=== PATIENT | female | born 1985 | race Caucasian/White ===

== ENCOUNTER → 2016-12-14 | Outpatient (CLI) | payer OTHER ==
[2016-11-16 15:25] VITALS: BP 124/62
[~2016-12-14] MED LIST: AMLO10TA2 PO; AZAT50TA10 PO; CYCL1DRO OP; FOLI1TAB16 PO; INFL100V IV; LAMO150T PO; LAMO200T PO; LEVO750T5 PO; LORA-434 PO; METF500T4 PO; MULT-18 PO; OLOP5DRO OP; OMEP40CA5 PO; OXYC-323 PO; PRED5DRO6 OP; PROG200C2 PO; TIZA4CAP PO; TRAZ100T12 PO; VENTOLIN HFA18 GM IH
--- NOTE | 2016-12-14 12:28 | KCIC ---
PROCEDURE Two-view chest HISTORY Influenza type A, cough, congestion for 5 days COMPARISON August 18, 2015 FINDINGS Two views of the chest are submitted. There is again right internal jugular port catheter with the tip in the superior vena cava. There is again electronic device of the anterior left chest with leads terminating in the inferior left neck. Heart size is stable, within normal limits. There is no new infiltrate, pleural fluid, pneumothorax. IMPRESSION No acute radiographic abnormality is identified. Electronically signed by: Cesar Livingston MD (Dec 14, 2016 12:26:45)
== END | disposition home or self-care (01) ==
LOC: KCIC 12:07
PROVIDERS: ATTEND Physician Assistant Medical
DX: J10.1 Influenza due to other identified influenza virus with other respiratory manifestations (principal); R05 Cough; R09.81 Nasal congestion
CPT/HCPCS: 71020

== ENCOUNTER 2017-03-18 00:20 | Emergency (ER) | payer OTHER ==
[~2017-03-18] VITALS: Ht 188 cm; Wt 220.4 kg
[2017-03-18 00:30] VITALS: BP 187/127
[2017-03-18] MEDS ORDERED: HYDROCODONE/APAP 5/325MG TABLET. PO ONE (00:45)
--- NOTE | 2017-03-18 01:25 | PHYS DOC ---
Past Medical History Past Medical History: Asthma, Ovarian Cyst, Other Additional Past Medical Histor: EPILEPSY,VAGAL NERVE STIMULATOR IN THE UPPER LEFT CHEST,BECHETS,OBESITY Past Surgical History: Appendectomy, Cholecystectomy, Tonsillectomy Additional Past Surgical Histo: PORTACATH RIGHT CHEST,RIGHT KNEE Alcohol Use: Rarely Drug Use: None Adult General Chief Complaint Chief Complaint: ANKLE PROBLEM HPI HPI Patient is a 31 year old female who presents with right ankle injury. 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 She felt a pop at time of injury. Was able to bear weight with significant amount of pain after the injury, had to walk up a hill to get back to the building. She denies previous ankle fracture or surgery. No additional injuries today. Review of Systems Review of Systems Constitutional: Denies fever or chills HENT: Denies nasal congestion Respiratory: Denies cough or shortness of breath Musculoskeletal: Reports ankle pain Integument: Denies rash Neurologic: Denies headache Current Medications Current Medications Current Medications Medications (Trade) Dose Ordered Sig/Munira Start Time Stop Time Status Last Admin Dose Admin Acetaminophen/ Hydrocodone Bitart (Lortab 5/325) 2 tab 1X ONCE 03/18/17 00:45 03/18/17 00:46 DC 03/18/17 00:50 2 TAB Allergies Allergies Allergies Coded Allergies Type Severity Reaction Last Updated Verified Penicillins Allergy Intermediate Swellingand hives 02/09/17 Yes amoxicillin Allergy Intermediate Swelling and hives 02/09/17 Yes aspirin Allergy Intermediate Hives, OK with premed 02/09/17 Yes hydrocodone bitartrate Allergy Intermediate Itching, OK with premed 02/09/17 Yes iodine Allergy Intermediate Hives iv contrast dye 02/09/17 Yes Physical Exam Physical Exam Constitutional: morbidly obese, no acute distress, non-toxic appearance. HENT: Normocephalic, atraumatic Eyes: conjunctiva normal, no discharge. Cardiovascular: no edema. Lungs & Thorax: no respiratory distress. Abdomen: nondistended. Skin: Warm, dry, no erythema, no rash. Extremities: right ankle moderate swelling without deformity, tenderness only over the lateral malleolus, no medial malleolar tenderness or tenderness over 5th metatarsal. minimal active range of motion at the ankle due to pain. no proximal tib/fib tenderness, no joint laxity with anterior/posterior drawer. dp /pt 2+, sensation intact to foot. Neurologic: Alert and oriented X 3 Current Patient Data Vital Signs Vital Signs Date Time Temp Pulse Resp B/P Pulse Ox O2 Delivery O2 Flow Rate FiO2 03/18/17 00:30 99.2 102 24 96 Room Air 99.2 EKG EKG [] Radiology/Procedures Radiology/Procedures XR R ankle: interpreted by me: no fracture or dislocation, soft tissue swelling is present.[] Course & Med Decision Making Course & Med Decision Making Pertinent Labs and Imaging studies reviewed. (See chart for details) The patient presents with ankle injury. She received pain medication. X-ray shows no fracture. Air splint placed, provided with crutches and crutch training. Recommend rest, ice elevation, ibuprofen for pain. Follow-up with Dr. Benedict in the orthopedic clinic if not improving in about one week. Return to the emergency department for neurovascular compromise or otherwise worsening condition. Discharged home in stable condition. [] Dragon Disclaimer Dragon Disclaimer This electronic medical record was generated, in whole or in part, using a voice recognition dictation system. Departure Departure Impression: Primary Impression: Ankle sprain Disposition: HOME, SELF-CARE Condition: STABLE Referrals: MANUEL DUBON (PCP) JAMESON BENEDICT II, MD Patient Instructions: Ankle Sprain, [id number] Additional Instructions: You were in the emergency department today for ankle injury. X-ray did not show a fracture. Please rest, apply ice, elevate, wear splint for comfort, use crutches with weightbearing as tolerated. Take ibuprofen for pain, use [place] for severe breakthrough pain. No drinking alcohol or driving while taking [place]. Return to work as tolerated, likely light-duty would be most appropriate for the next several days. Follow-up with Dr. Benedict in the orthopedic clinic if not improving in about one week. Return to the emergency department for cold or numb foot, any otherwise worsening condition. Scripts Hydrocodone/Apap 5-325 ([place] 5-325 Tablet)1 Each Tablet1 Tab PO PRN Q6HRS PRN PAIN #6 TAB Ref 0 Prov:ROSALBA ALFRED MD 03/18/17 Ibuprofen 600 Mg [id number] Mg PO PRN Q6HRS PRN INFLAMMATION #20 TAB Prov:ROSALBA ALFRED MD 03/18/17 ROSALBA ALFRED MD Mar 18, 2017 01:25
[2017-03-18] MEDS ORDERED: HYDR-971 PO (01:28)
[2017-03-18] MEDS ORDERED: IBUP-1007 PO (01:28)
--- NOTE | 2017-03-18 09:16 | RAD ---
Three-view right ankle radiographs 03/18/2017 Clinical history: Twisting injury to the right ankle with pain. Portable AP, lateral and oblique digital radiographs of the right ankle were obtained. No fracture or dislocation of the right ankle is seen. The right ankle mortise is intact. Mild degenerative changes are seen involving the right ankle joint. Impression: No fracture or dislocation of the right ankle is seen.
== END 2017-03-18 01:45 | disposition home or self-care (01) ==
LOC: ER 00:20
DX: S93.401A Sprain of unspecified ligament of right ankle, initial encounter (principal); G40.909 Epilepsy, unspecified, not intractable, without status epilepticus; J45.909 Unspecified asthma, uncomplicated; Z88.0 Allergy status to penicillin; Z88.6 Allergy status to analgesic agent; Z88.1 Allergy status to other antibiotic agents; Z91.041 Radiographic dye allergy status; Z88.5 Allergy status to narcotic agent; W01.0XXA Fall on same level from slipping, tripping and stumbling without subsequent striking against object, initial encounter; Y93.89 Activity, other specified; Y99.8 Other external cause status; Y92.89 Other specified places as the place of occurrence of the external cause
CPT/HCPCS: 73610; 99284-25

== ENCOUNTER 2017-05-09 12:34 | Inpatient (IN) | payer OTHER ==
[~2017-05-09] VITALS: Ht 185.4 cm; Wt 213.6 kg
[~2017-05-09 12:34] MED LIST changes: -AZAT50TA10 PO; +AZAT50TA20 PO; +HYDR-971 PO; +IBUP-1007 PO; +PRED5DRO16 OP; -PRED5DRO6 OP
[2017-05-09 16:18] VITALS: BP 197/124
[2017-05-09] MEDS ORDERED: PANTOPRAZOLE IV PUSH 40 MG VIAL. IVP ONE (17:00)
[2017-05-09] MEDS: POTASSIUM CL 20MEQ D5-0.45NACL 1,000 ML IV SCH (17:18)
--- NOTE | 2017-05-09 17:47 | HP ---
ADMIT DATE: 05/09/2017 CHIEF COMPLAINT: Abdominal pain and vomiting. HISTORY OF PRESENT ILLNESS: A 32-year-old white female seen in the office on day of admission with 3 weeks of progressive increasing burning epigastric pain and an increasing nausea, vomiting, and intolerance of food and fluids. Urine showed high specific gravity and some ketones and she was admitted. There has been no hematemesis, melena, hematochezia, fever, or dysphagia or other symptoms. Abdominal pain initially was better with eating, but then she began to be unable to eat. She has been on omeprazole and Carafate recently without benefit. PAST MEDICAL HISTORY: History of Behcet's disease and takes Remicade every 6 weeks through an IV port. MEDICATIONS: Include omeprazole and Carafate. She takes 2 medicines for high blood pressure. ALLERGIES: PENICILLIN. PAST SURGICAL HISTORY: She has had an appendectomy and cholecystectomy. She apparently had an unremarkable EGD 6-8 months ago and has had colonoscopy as well. She has had no pregnancies. SOCIAL HISTORY: , works at [employer]. Nonsmoker, nondrinker. FAMILY HISTORY: Unremarkable. REVIEW OF SYSTEMS: She has recently been on home medication for the possibility of increased fertility per Dr. Ghotra, but her symptoms seemed to start before she started this drug. OBJECTIVE: ENT: Facies very red, otherwise unremarkable. NECK: No masses, nodes, or bruits. LUNGS: Clear. CARDIOVASCULAR: Regular rate, tachycardia. No murmur. ABDOMEN: Diffusely tender in the epigastrium. No masses or guarding is felt. Bowel sounds diminished. EXTREMITIES: Good pedal and radial pulses. No joint or skin lesions. NEUROLOGIC: Physiologic and nonfocal. ASSESSMENT: 1. Progressive diffuse epigastric burning pain, sounds more like ulcer disease to me than anything else. Behcet's could be contributing though has been treated. 2. Morbid obesity with a history of hypertension and polycystic ovary syndrome. PLAN: As ordered. DENI KAHN MD DR: SINGH/lucio JOB#: [id number] / [id number]
[2017-05-09 18:01] VITALS: BP 197/124
[2017-05-09] MEDS ORDERED: CLOM50TA2 PO (18:23)
[2017-05-09] MEDS: HYDROmorphone 2 MG/ML VIAL IVP PRN ×2 (18:36→22:03)
[2017-05-09] MEDS: amLODIPine BESYLATE 10 MG TABLET PO SCH (18:37)
[2017-05-09 18:47] LABS: BASO % 1 % (0-3); EOS % 3 % (0-3); HEMATOCRIT 38.4 % (36.0-47.0); HEMOGLOBIN 12.6 g/dL (12.0-15.5); LYMPH # 1.1 x10^3/uL (1.0-4.8); LYMPH % 12 % (24-48); MEAN CORPUSCULAR HEMOGLOBIN 27 pg (25-35); MEAN CORPUSCULAR HGB CONC 33 g/dL (31-37); MEAN CORPUSCULAR VOLUME 82 fL (79-100); MONO % 6 % (0-9); NEUT % 79 % (31-73); PLATELET COUNT 155 x10^3/uL (140-400); WHITE BLOOD COUNT 8.9 x10^3/uL (4.0-11.0)
[2017-05-09 18:54] LABS: BILIRUBIN,URINE NEGATIVE (NEG); GLUCOSE,URINE NEGATIVE (NEG); NITRITE,URINE NEGATIVE (NEG); PROTEIN,URINE 30 mg/dL (NEG-TRACE); UROBILINOGEN,URINE 0.2 mg/dL (0.2 mg/dL)
[2017-05-09 19:00] VITALS: BP 178/92
[2017-05-09 19:04] LABS: BACTERIA,URINE MODERATE /HPF (0-FEW); RBC,URINE 0 /HPF (0-2); SQUAMOUS EPITHELIAL CELL,UR MANY /LPF; WBC,URINE OCC /HPF (0-4)
[2017-05-09 19:15] LABS: ALBUMIN 3.7 g/dL (3.4-5.0); CREATININE 0.8 mg/dL (0.6-1.0); GFR 84.2; POTASSIUM 3.7 mmol/L (3.5-5.1); TOTAL BILIRUBIN 0.4 mg/dL (0.2-1.0); TOTAL PROTEIN 7.3 g/dL (6.4-8.2)
[2017-05-09] MEDS: PROCHLORPERAZINE 10 MG/2 ML VIAL. IV PRN (20:38)
--- NOTE | 2017-05-09 20:38 | RAD ---
History: Left upper quadrant pain for 3 weeks. Nausea and vomiting.. Comparison: CT abdomen and pelvis October 29, 2016. Technique: CT of the abdomen and pelvis was performed without intravenous or oral contrast. No intravenous contrast was administered secondary to allergy. Exposure: One or more of the following individualized dose reduction techniques were utilized for this examination: 1. Automated exposure control 2. Adjustment of the mA and/or kV according to patient size 3. Use of iterative reconstruction technique Findings: Evaluation of solid organs of the abdomen and pelvis is limited by lack of intravenous contrast. Evaluation of enteric structures may be limited by lack of oral contrast. There is also quantum mottle artifact secondary to the patient's body habitus. Mild fatty liver disease is suspected. The spleen is enlarged measuring 16.5 cm in axial dimension. Pancreas and bilateral adrenal glands are unremarkable. Gallbladder is absent. IVC filter is present. Bilateral kidneys and ureters are free of stone or obstruction. Small fat-containing umbilical hernia is seen. No bowel obstruction or inflammation is identified. Colonic diverticulosis is noted without evidence of diverticulitis. Appendix is without evidence of inflammation. The uterus and adnexa have grossly unremarkable appearance. Urinary bladder is unremarkable. No free air or free fluid is seen in the abdomen or pelvis. Several vertebral levels have been treated with cement. Impression: 1. No acute abnormality identified in the abdomen or pelvis. 2. Small fat-containing umbilical hernia. Electronically signed by: Enio Alvarez MD (05/09/2017 8:35 PM)
[2017-05-09] MEDS: cloNIDine HCL 0.1 MG TABLET PO PRN (22:02)
[2017-05-09 23:00] VITALS: BP 146/86
[2017-05-10] VITALS (9 sets, daily range): BP systolic 128–163; BP diastolic 60–113
[2017-05-10] MEDS: POTASSIUM CL 20MEQ D5-0.45NACL 1,000 ML IV SCH ×4 (00:05→16:30)
[2017-05-10] MEDS: PROCHLORPERAZINE 10 MG/2 ML VIAL. IV PRN ×5 (00:42→20:49)
[2017-05-10] MEDS: HYDROmorphone 2 MG/ML VIAL IVP PRN ×4 (05:51→20:48)
--- NOTE | 2017-05-10 08:34 | PDOC ---
Provider Note Provider Note bp better, no temp, still epigastric /LUQ pain, nausea- tender there w/out guarding- ct ok, labvs ok- will check lipase , cortisol, cont iv protonix- likely needs egd unless lipase high but no risk factors re pancreatitis DENI KAHN MD May 10, 2017 08:34
--- NOTE | 2017-05-10 08:51 | ACF ---
Admission Forms Criteria ABDOMINAL PAIN Clinical Indications for Admission to Inpatient Care (Place 'X' for any and all applicable criteria): Admission is indicated for ANY ONE of the following(1)(2)(3)(4)(5): [ ]I. Inpatient admission required rather than observation care (Also use Abdominal Pain: Observation Care, as appropriate) because of ANY ONE of the following: [ ]a) Severe pain requiring acute inpatient management [ ]b) Identification of etiology/finding that requires inpatient care (eg, aortic dissection, free air) [ ]c) Absent bowel sounds with complete ileus(6) [ ]d) Suspected toxic megacolon [ ]e) Severe electrolyte abnormalities requiring inpatient care [ ]f) High fever or infection requiring inpatient admission as indicated by ANY ONE of following(7)(8): [ ] i) Appropriate outpatient or observational care antimicrobial treatment unavailable, not effective, or not feasible [ ] ii) Documented bacteremia [ ] iii) Temperature > 104.9 degrees F (oral) [ ] iv) T >103.1 F (oral) or < 96.8 F(rectal) that does not respond to all emergency treatment measures [ ]g) Signs of intestinal obstruction [B] [ ]h) Hemodynamic instability [ ]i) IV fluid to replace significant ongoing losses (greater than 3 L/m2 per day) (12)(13) [ ]j) Percutaneous or open drainage (eg, abscess, biliary tract ) procedures [ ]k) Parenteral nutrition regimen that must be implemented on inpatient basis [ ]l) Other condition,treatment or monitoring requiring inpatient admission. [ ]II. Peritoneal signs present [ ]III. Surgery needed that cannot be performed on an ambulatory basis. [ ]IV. Evaluation requires patient to not eat or drink for extended period ( eg, more than 24 hours). [ ]V. Contraindications and/or Inappropriate clinical situations for Observational Care in patients with abdominal pain, when ANY ONE of the following is required: [ ]a) Thorough evaluation is required to prevent catastrophic events due to delays in diagnosing (e.g.Mesenteric ischemia) 1,3 [ ]b) Patient with severe pathology or with chronic symptoms unlikely to improve in the ED stay (3) [X]. General contraindications and/or Inappropriate clinical situations for Observational Care in patients with abdominal pain, when ANY ONE of the following is required: [ ]a) Prediction of prolongation of LOS based on ANY ONE of the following may be considered as a contraindication for observational care 2, 3, 4, 5, 6, 7, 8, 9, 10, 11 [ ]i) Age > 65 yrs. [ ]ii) Patient arriving by ambulance [ ]iii) Patient with high acuity [ ]iv) Patient requiring vital sign monitoring [ ]v) Patient on IV medication [X]b) Systolic blood pressures 180mmHg 3,12 [ ]c) Patient with altered mental status including delirium and other alteration of consciousness, (3) [ ]d) Patient whose discharge disposition will be to a usp home or rehabilitation home should not be managed in Emergency Department Observation Unit. CMS rule requires 3 days hospital stay before such placement.3,13 [ ]e) Patient with failure to thrive due to broad array of etiologies 3,16,17 [ ]f) Inability to ambulate 3,14 Extended stay beyond goal length of stay may be needed for(2)(3): [ ]a) Persistent abdominal pain with suspected intra-abdominal process [ ]b) Diagnosed condition requiring continued stay (e.g., pancreatitis, complicated diverticulitis) [ ]c) Surgery (e.g., colectomy) The original [employer] content created by [employer] has been revised. The portions of the content which have been revised are identified through the use of italic text or in bold, and [facility] has neither reviewed nor approved the modified material.All other unmodified content is copyright [employer]. Please see references footnoted in the original [employer] edition 2016 Admission Criteria Met?: Yes SAQIB HOSKINS May 10, 2017 08:51
[2017-05-10] MEDS: PANTOPRAZOLE SODIUM IV 80 MG in IV NORMAL SALINE 100ML 100 ML IV SCH ×2 (09:40→19:54)
--- NOTE | 2017-05-10 10:18 | PDOC2 ---
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 Carries diagnosis of Crohn's as well. Last colonoscopy 2012 w/ sigmoid diverticulosis, internal hemorrhoids, and normal random colon biopsies. Last EGD 03/2016 w/ Grade 1 reflux (path c/w), normal stomach, normal duodenum. Has had epigastric pain for a few weeks, tried carafate w/ PCP, didn't take much because caused more frequent stools. Pain getting worse, started w/ significant vomiting yesterday, unable to tolerated PO, admitted. Last BM two days ago, dark. No NSAIDs. Labs okay, CT unremarkable. Cortisol level ordered. She says she was hoping for 'scope. PMH: PMH: Behcet's, HTN, GERD, DVT/PE s/p IVC filter, anxiety/depression, PCOS, appendectomy, cholecystectomy FH: Family History: No pertinent hx Social History: Smoke: No ALCOHOL: none Drugs: None ROS: GEN: Denies fevers, chills, sweats HEENT: Denies blurred vision, sore throat CV: Denies chest pain RESP: Denies shortness of air, cough GI: Per HPI : Denies hematuria, dysuria ENDO: Denies weight changes NEURO: Denies confusion, dizziness MSK: Denies weakness, joint pain/swelling SKIN: Denies jaundice, pruritus Vitals: Vitals: Vital Signs Date Time Temp Pulse Resp B/P (MAP) Pulse Ox O2 Delivery O2 Flow Rate FiO2 05/10/17 07:00 97.7 103 20 162/92 (115) 97 Room Air 97.7 Labs: Labs: Laboratory Tests Test 05/09/17 18:40 White Blood Count 8.9 x10^3/uL (4.0-11.0) Red Blood Count 4.70 x10^6/uL (3.50-5.40) Hemoglobin 12.6 g/dL (12.0-15.5) Hematocrit 38.4 % (36.0-47.0) Mean Corpuscular Volume 82 fL (79-100) Mean Corpuscular Hemoglobin 27 pg (25-35) Mean Corpuscular Hemoglobin Concent 33 g/dL (31-37) Red Cell Distribution Width 16.0 % (11.5-14.5) Platelet Count 155 x10^3/uL (140-400) Neutrophils (%) (Auto) 79 % (31-73) Lymphocytes (%) (Auto) 12 % (24-48) Monocytes (%) (Auto) 6 % (0-9) Eosinophils (%) (Auto) 3 % (0-3) Basophils (%) (Auto) 1 % (0-3) Neutrophils # (Auto) 7.1 x10^3uL (1.8-7.7) Lymphocytes # (Auto) 1.1 x10^3/uL (1.0-4.8) Monocytes # (Auto) 0.5 x10^3/uL (0.0-1.1) Eosinophils # (Auto) 0.2 x10^3/uL (0.0-0.7) Basophils # (Auto) 0.0 x10^3/uL (0.0-0.2) Erythrocyte Sedimentation Rate 10 (0-25) Urine Collection Type Unknown Urine Color Yellow Urine Clarity Clear Urine pH 6.0 Urine Specific Al[place] 1.015 Urine Protein 30 mg/dL (NEG-TRACE) Urine Glucose (UA) Negative mg/dL (NEG) Urine Ketones (Stick) Trace mg/dL (NEG) Urine Blood Negative (NEG) Urine Nitrite Negative (NEG) Urine Bilirubin Negative (NEG) Urine Urobilinogen Dipstick 0.2 mg/dL (0.2 mg/dL) Urine Leukocyte Esterase Negative (NEG) Urine RBC 0 /HPF (0-2) Urine WBC Occ /HPF (0-4) Urine Squamous Epithelial Cells Many /LPF Urine Bacteria Moderate /HPF (0-FEW) Urine Hyaline Casts Few /HPF Urine Mucus Slight /LPF Sodium Level 141 mmol/L (136-145) Potassium Level 3.7 mmol/L (3.5-5.1) Chloride Level 106 mmol/L (98-107) Carbon Dioxide Level 26 mmol/L (21-32) Anion Gap 9 (6-14) Blood Urea Nitrogen 11 mg/dL (7-20) Creatinine 0.8 mg/dL (0.6-1.0) Estimated GFR (Cockcroft-Gault) 84.2 BUN/Creatinine Ratio 14 (6-20) Glucose Level 105 mg/dL (70-99) Calcium Level 9.0 mg/dL (8.5-10.1) Total Bilirubin 0.4 mg/dL (0.2-1.0) Aspartate Amino Transf (AST/SGOT) 21 U/L (15-37) Alanine Aminotransferase (ALT/SGPT) 37 U/L (14-59) Alkaline Phosphatase 58 U/L (46-116) Total Protein 7.3 g/dL (6.4-8.2) Albumin 3.7 g/dL (3.4-5.0) Albumin/Globulin Ratio 1.0 (1.0-1.7) Allergies: Coded Allergies: Penicillins (Verified Allergy, Intermediate, Swellingand hives, 05/04/17) amoxicillin (Verified Allergy, Intermediate, Swelling and hives, 05/04/17) aspirin (Verified Allergy, Intermediate, Hives, OK with premed, 05/04/17) iodine (Verified Allergy, Intermediate, Hives iv contrast dye, 05/04/17) Medications: Current Medications Medications (Trade) Dose Ordered Sig/Munira Route PRN Reason Start Time Stop Time Status Last Admin Dose Admin Potassium Chloride/Dextrose/ Sod Cl 1,000 ml @ 150 mls/hr Q6H40M IV 05/09/17 17:00 05/10/17 02:15 Pantoprazole Sodium (Protonix Vial) 40 mg 1X ONCE IVP 05/09/17 17:00 05/09/17 17:01 DC 05/09/17 17:17 Amlodipine Besylate (Norvasc) 10 mg DAILY PO 05/09/17 18:30 05/09/17 18:37 Hydromorphone HCl (Dilaudid) 0.6 mg PRN Q4HRS PRN IVP PAIN 05/09/17 18:15 05/10/17 05:51 Clonidine HCl (Catapres) 0.1 mg PRN Q6HRS PRN PO HTN 05/09/17 22:00 05/09/17 22:02 Prochlorperazine Edisylate (Compazine) 5 mg PRN Q4HRS PRN IV NAUSEA/VOMITING 05/09/17 20:15 05/10/17 05:51 Imaging: Imaging: CT A/P w/o contrast Impression: 1. No acute abnormality identified in the abdomen or pelvis. 2. Small fat-containing umbilical hernia. PE: GEN: NAD, obese HEENT: Atraumatic, PERRL LUNGS: CTAB anteriorly HEART: RRR ABD: NABS, S/ND, epigastric/LUQ discomfort EXTREMITY: No edema SKIN: No rashes, no jaundice NEURO/PSYCH: A & O 3 A/P: A/P: Upper abd pain, n/v -pain for a few weeks, worse -vomiting started yesterday -CT unremarkable -s/p appy, rosina -Cortisol ordered Behcet's -on Remicade GERD -on PPI, also tried carafate recently -last EGD 2015 CRC screen -last colonoscopy 2012 -- NPO for EGD this afternoon. If unrevealing, GES tomorrow. 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 BRYN WARD May 10, 2017 10:17
[2017-05-10 12:23] LABS: NEG OBC UR NEG; POS OBC UR POS
[2017-05-10] MEDS: IV RINGERS,LACTATED 1000ML 1,000 ML IV SCH ×2 (13:40→23:42)
[2017-05-10] MEDS ORDERED: PROPOFOL 20 ML IV ONE ×2 (14:16→14:17)
[2017-05-10] MEDS ORDERED: LIDOCAINE 2% PF Vial for OR 5 ML VIAL. ONE (14:16)
--- NOTE | 2017-05-10 14:33 | PDOC4 ---
Operative Note Operative Note EGD Meds propofol per anesthesia Pre-op dx abd pain s/p rosina post-op dx non-erosive gastritis Plan advance diet ges in am WILTON GRUBBS MD May 10, 2017 14:33
[2017-05-10] MEDS: amLODIPine BESYLATE 10 MG TABLET PO SCH (16:34)
[2017-05-10] MEDS ORDERED: cloNIDine HCL 0.1 MG TABLET PO SCH (18:30)
[2017-05-10] MEDS: cloNIDine HCL 0.1 MG TABLET PO PRN (20:52)
[2017-05-11] MEDS: POTASSIUM CL 20MEQ D5-0.45NACL 1,000 ML IV SCH ×3 (00:30→20:03)
[2017-05-11] MEDS: HYDROmorphone 2 MG/ML VIAL IVP PRN ×4 (01:01→20:35)
[2017-05-11] MEDS: PROCHLORPERAZINE 10 MG/2 ML VIAL. IV PRN ×3 (01:01→13:13)
[2017-05-11 03:00] VITALS: BP 128/77
[2017-05-11] MEDS: PANTOPRAZOLE SODIUM IV 80 MG in IV NORMAL SALINE 100ML 100 ML IV SCH (06:23)
[2017-05-11 07:00] VITALS: BP 108/59
--- NOTE | 2017-05-11 08:27 | PDOC ---
Provider Note Provider Note vss, fair output- gastritis per egd, get ordered- will try liquids after that- still iv protonix for now- lipase ok DENI KAHN MD May 11, 2017 08:27
[2017-05-11] MEDS: amLODIPine BESYLATE 10 MG TABLET PO SCH (09:57)
--- NOTE | 2017-05-11 13:18 | PDOC ---
Subjective: Subjective: Just back from GES. Not really feeling much better. Might try some lunch. Still upper abd discomfort. Objective: Vital Signs: Vital Signs Date Time Temp Pulse Resp B/P (MAP) Pulse Ox O2 Delivery O2 Flow Rate FiO2 05/11/17 09:57 68 108/59 05/11/17 07:11 18 Room Air 05/11/17 07:00 98.2 98 98.2 Imaging: GES 05/11/17 PENDING EGD 05/10/17: non-erosive gastritis PE: GEN: NAD, obese LUNGS: CTAB HEART: RRR ABD: epigastric discomfort - ?less than yesterday NEURO/PSYCH: A & O 3 A/P: Upper abd pain, n/v -CT unremarkable, s/p appy, rosian -h/o GERD on PPI, EGD yesterday as above -h/o Behcet's on Remicade, last colonoscopy 2012 -- Still on PPI drip - change to PO. Await GES. BRYN WARD May 11, 2017 13:18
[2017-05-11 15:00] VITALS: BP 132/78
--- NOTE | 2017-05-11 15:00 | RAD ---
Radionuclide gastric emptying study, 05/11/2017: History: Abdominal pain and vomiting The study was performed utilizing a solid test meal radiolabeled with 2.1 mCi of technetium 99m sulfur colloid. The time to half emptying of the test meal from the patient's stomach was estimated at 289 minutes. A normal T1/2 is 60 minutes +/- 30 minutes. IMPRESSION: Moderately delayed gastric emptying
[2017-05-11 19:59] VITALS: BP 169/96
[2017-05-11] MEDS: ERYTHROMYCIN BASE 250 MG TABLET PO SCH ×2 (20:03→20:04)
[2017-05-11 23:37] VITALS: BP 120/67
[2017-05-12] MEDS: HYDROmorphone 2 MG/ML VIAL IVP PRN ×6 (02:02→23:54)
[2017-05-12] MEDS: PROCHLORPERAZINE 10 MG/2 ML VIAL. IV PRN ×6 (02:02→23:54)
[2017-05-12] MEDS: POTASSIUM CL 20MEQ D5-0.45NACL 1,000 ML IV SCH ×3 (02:06→20:51)
[2017-05-12 03:41] VITALS: BP 130/87
[2017-05-12 07:00] VITALS: BP 143/80
[2017-05-12] MEDS: amLODIPine BESYLATE 10 MG TABLET PO SCH (08:17)
[2017-05-12] MEDS: ERYTHROMYCIN BASE 250 MG TABLET PO SCH ×4 (08:17→20:51)
[2017-05-12] MEDS: PANTOPRAZOLE 40 MG TABLET.DR. PO SCH (08:17)
[2017-05-12 11:14] VITALS: BP 158/81
--- NOTE | 2017-05-12 13:34 | PDOC ---
SUBJECTIVE Subjective still decrease appetite and nausea OBJECTIVE Vital Signs Vital Signs Date Time Temp Pulse Resp B/P (MAP) Pulse Ox O2 Delivery O2 Flow Rate FiO2 05/12/17 11:14 97.6 82 20 158/81 (106) 96 Room Air 97.6 05/12/17 11:04 100 Room Air 05/12/17 08:17 79 130/87 05/12/17 08:00 Room Air 05/12/17 07:00 97.9 75 16 143/80 (101) 100 Room Air 97.9 05/12/17 06:34 18 05/12/17 06:04 21 Room Air 05/12/17 03:41 98.4 79 18 130/87 (101) 96 Room Air 98.4 05/12/17 02:02 23 Room Air 05/11/17 23:37 98.1 61 18 120/67 (84) 96 Room Air 98.1 05/11/17 20:35 20 Room Air 05/11/17 20:00 Room Air 05/11/17 19:59 98.2 87 18 169/96 (120) 98 Room Air 98.2 05/11/17 15:00 97.9 88 20 132/78 (96) 97 Room Air 97.9 I & O Intake and Output 05/12/17 07:00 Intake Total 1920 ml Output Total 400 ml Balance 1520 ml Intake Oral 720 ml Other 1200 ml Output Urine Total 400 ml PHYSICAL EXAM Physical Exam lungs clear heart RRR abd soft mild diffuse tenderness ext no edema ASSESSMENT/PLAN Assessment/Plan 1- Upper abd pain, n/v 2-GERD and gastritis, slow gastric emptying on NM study 3-h/o Behcet's on Remicade 4- hx epilepsy continue plan encouraged to increase po intake Problems: SANDOR NY MD May 12, 2017 13:34
[2017-05-12 15:00] VITALS: BP 184/112
[2017-05-12] MEDS: cloNIDine HCL 0.1 MG TABLET PO PRN (16:35)
[2017-05-12 19:59] VITALS: BP 160/91
[2017-05-12 23:42] VITALS: BP 173/95
[2017-05-13] MEDS: PROCHLORPERAZINE 10 MG/2 ML VIAL. IV PRN ×5 (05:03→21:01)
[2017-05-13] MEDS: HYDROmorphone 2 MG/ML VIAL IVP PRN ×5 (05:05→21:02)
[2017-05-13] MEDS: POTASSIUM CL 20MEQ D5-0.45NACL 1,000 ML IV SCH ×2 (05:17→15:21)
[2017-05-13 07:00] VITALS: BP 161/72
[2017-05-13] MEDS: ERYTHROMYCIN BASE 250 MG TABLET PO SCH ×4 (07:51→21:02)
[2017-05-13] MEDS: PANTOPRAZOLE 40 MG TABLET.DR. PO SCH (07:51)
[2017-05-13] MEDS: amLODIPine BESYLATE 10 MG TABLET PO SCH (09:20)
[2017-05-13 11:00] VITALS: BP 144/96
--- NOTE | 2017-05-13 13:01 | PDOC ---
SUBJECTIVE Subjective still poor P.O intake OBJECTIVE Vital Signs Vital Signs Date Time Temp Pulse Resp B/P (MAP) Pulse Ox O2 Delivery O2 Flow Rate FiO2 05/13/17 10:17 96 Room Air 05/13/17 09:21 96 Room Air 05/13/17 09:20 79 161/71 05/13/17 08:03 Room Air 05/13/17 07:00 97.2 79 22 161/72 (101) 98 Room Air 97.2 05/13/17 05:36 18 05/13/17 05:05 22 Room Air 05/12/17 23:54 18 Room Air 05/12/17 23:42 97.9 85 18 173/95 (121) 96 Room Air 97.9 05/12/17 20:00 Room Air 05/12/17 19:59 98.4 86 18 160/91 (114) 96 Room Air 98.4 05/12/17 19:00 95 Room Air 05/12/17 16:35 100 184/112 05/12/17 15:00 98.7 100 20 184/112 (136) 95 Room Air 98.7 I & O Intake and Output 05/13/17 07:00 Intake Total 2050 ml Balance 2050 ml Intake Oral 850 ml Other 1200 ml # Voids 4 PHYSICAL EXAM Physical Exam mild diffuse abd pain ASSESSMENT/PLAN Assessment/Plan 1- Upper abd pain, n/v 2-GERD and gastritis, slow gastric emptying on NM study 3-h/o Behcet's on Remicade 4- hx epilepsy 5. high cortisol levels but adrenal glands normal on CT 6. umbilical hernia Dr Brooks will resume care in AM Problems: SANDOR [place] MD May 13, 2017 13:01
[2017-05-13] MEDS ORDERED: amLODIPine BESYLATE 10 MG TABLET PO SCH (14:00)
[2017-05-13 15:00] VITALS: BP 175/91
[2017-05-13] MEDS ORDERED: PANTOPRAZOLE 40 MG TABLET.DR. PO SCH (16:30)
[2017-05-13] MEDS: metFORMIN 500 MG TABLET PO SCH (17:12)
[2017-05-13 19:00] VITALS: BP 149/85
[2017-05-13] MEDS ORDERED: tiZANidine 4 MG TABLET. PO SCH (21:00)
[2017-05-13 23:00] VITALS: BP 123/59
[2017-05-14] MEDS: HYDROmorphone 2 MG/ML VIAL IVP PRN ×2 (01:29→05:20)
[2017-05-14] MEDS: PROCHLORPERAZINE 10 MG/2 ML VIAL. IV PRN ×3 (01:30→10:10)
[2017-05-14 01:52] LABS: HEMOGLOBIN 11.2 g/dL (12.0-15.5); RED BLOOD COUNT 4.07 x10^6/uL (3.50-5.40); RED CELL DISTRIBUTION WIDTH 16.3 % (11.5-14.5); WHITE BLOOD COUNT 7.5 x10^3/uL (4.0-11.0)
[2017-05-14 02:35] LABS: ALBUMIN 3.1 g/dL (3.4-5.0); CALCIUM 8.3 mg/dL (8.5-10.1); CREATININE 0.8 mg/dL (0.6-1.0); GFR 84.2; POTASSIUM 3.7 mmol/L (3.5-5.1); TOTAL BILIRUBIN 0.4 mg/dL (0.2-1.0); TOTAL PROTEIN 6.2 g/dL (6.4-8.2)
[2017-05-14 07:00] VITALS: BP 141/71
[2017-05-14] MEDS ORDERED: MULTIVITAMIN with MINERAL TABLET. PO SCH (08:00)
--- NOTE | 2017-05-14 08:21 | PDOC ---
Provider Note Provider Note vss. bp ok, still moderate anorexia but ok w/ liquids- acth ok so no cushinds likely- discussed gastroparesis, various meds, trial of e/mycin underway- will dc iv fluid in advance of poss discharge- she will discuss w. dr olmos- does her vagal nerve stim device have any role in this? DENI KAHN MD May 14, 2017 08:21
[2017-05-14] MEDS: PANTOPRAZOLE 40 MG TABLET.DR. PO SCH (10:07)
[2017-05-14] MEDS: cloNIDine HCL 0.1 MG TABLET PO PRN (10:08)
[2017-05-14] MEDS: metFORMIN 500 MG TABLET PO SCH (10:08)
[2017-05-14] MEDS: ERYTHROMYCIN BASE 250 MG TABLET PO SCH ×2 (10:09→11:30)
[2017-05-14] MEDS: amLODIPine BESYLATE 10 MG TABLET PO SCH (10:09)
[2017-05-14 10:54] VITALS: BP 149/85
[2017-05-14] MEDS ORDERED: ERYT250C8 PO (13:25)
[2017-05-14] MEDS ORDERED: HEPARIN PF 500 UNIT/5 ML DISP.SYRIN. IV ONE (14:00)
--- NOTE | 2017-05-14 14:32 | PDOC ---
Subjective: Subjective: Not much difference w/ erythromycin but tolerating a little food (oatmeal). Some loose stools after e-mycin dose. Would like to DC today. Objective: Objective: Seen earlier this morning w/ Dr. Delgado. D/w RN. Vital Signs: Vital Signs Date Time Temp Pulse Resp B/P (MAP) Pulse Ox O2 Delivery O2 Flow Rate FiO2 05/14/17 10:54 97.9 74 17 149/85 (106) 98 Room Air 97.9 Labs: Laboratory Tests Test 05/13/17 16:13 Glucose (Fingerstick) 104 mg/dL (70-99) PE: GEN: NAD LUNGS: CTAB HEART: RRR ABD: obese NEURO/PSYCH: A & O 3 A/P: Gastroparesis, morbid obesity -- DC okay per GI. Provided Rx erythromycin, monitor symptoms. Encouraged slowly advancing diet, keeping mostly to liquids for now which is also aide in weight reduction. Follow-up PRN. BRYN WARD May 14, 2017 14:32
[2017-05-14 14:42] VITALS: BP 146/87
--- NOTE | 2017-05-15 06:41 | DS ---
DATE OF DISCHARGE: 05/14/2017 HOSPITAL SUMMARY: A 32-year-old white female with a history of hypertension, came in with ongoing abdominal pain, nausea and vomiting. EGD revealed only mild gastritis and a gastric emptying time showed moderately delayed gastric emptying. Chemistry profile was normal except for a slightly elevated a.m. and p.m. cortisol, but the ACTH levels were normal ruling out notable [place] syndrome. Dr. Delgado and Dr. Melvin started her on erythromycin and she was somewhat improved. Prior to dismissal, was able to tolerate liquids and soft foods though she was still having some epigastric pain consistent with her gastroparesis of idiopathic origin. FINAL DIAGNOSIS: Gastroparesis, idiopathic. OPERATIONS AND PROCEDURES: EGD. COMPLICATIONS: None. CONSULTATION: Dr. Delgado. DISPOSITION: She will take erythromycin base 250 mg t.i.d. and bedtime and will consider trying Reglan only if she fails to respond to this regimen. She will see me in followup routinely, Dr. Delgado in 1-2 weeks and her prognosis is guarded. DENI KAHN MD DR: SINGH/lucio JOB#: [id number] / [id number]
[2017-05-15] MEDS ORDERED: HYDR-2758 PO (17:56)
== END 2017-05-14 14:55 | disposition home or self-care (01) | DRG 392 ==
LOC: 5 SOUTH 15:41
PROVIDERS: ADMIT Family Medicine; ATTEND Family Medicine
PROC: 0DJ08ZZ Inspection of Upper Intestinal Tract, Via Natural or Artificial Opening Endoscopic (ICD-10-PCS; principal; 2017-05-10 14:00)
DX: K31.84 Gastroparesis (principal); K50.90 Crohn's disease, unspecified, without complications; E28.2 Polycystic ovarian syndrome; E66.01 Morbid (severe) obesity due to excess calories; F32.9 Major depressive disorder, single episode, unspecified; F41.9 Anxiety disorder, unspecified; G40.909 Epilepsy, unspecified, not intractable, without status epilepticus; I10 Essential (primary) hypertension; K21.9 Gastro-esophageal reflux disease without esophagitis; K29.70 Gastritis, unspecified, without bleeding; K42.9 Umbilical hernia without obstruction or gangrene
CPT/HCPCS: 36415; 74176; 78264; 80053; 81001; 81025; 82024; 82533; 82962; 83690; 85027; 85651; 87086; A9541; C9113; J0780; J1170; J2704; J7120

== ENCOUNTER 2017-05-15 16:33 | Emergency (ER) | payer OTHER ==
[~2017-05-15] VITALS: Ht 185.4 cm; Wt 213.6 kg
[~2017-05-15 16:33] MED LIST changes: +CLOM50TA2 PO; +ERYT250C8 PO
[2017-05-15] MEDS ORDERED: HYDROcodone/APAP 10/325 1 TAB TABLET PO ONE (17:00)
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
[2017-05-15] MEDS ORDERED: HYDR-2758 PO (17:56)
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
[2017-05-15 18:37] VITALS: BP 168/89
== END 2017-05-15 18:38 | disposition home or self-care (01) ==
LOC: ER 16:33
DX: R51 Headache (principal); M54.2 Cervicalgia; J45.909 Unspecified asthma, uncomplicated; G40.909 Epilepsy, unspecified, not intractable, without status epilepticus; E66.9 Obesity, unspecified; Z68.44 Body mass index [BMI] 60.0-69.9, adult; Z90.49 Acquired absence of other specified parts of digestive tract; Z88.0 Allergy status to penicillin; Z88.1 Allergy status to other antibiotic agents; Z88.8 Allergy status to other drugs, medicaments and biological substances; Z88.6 Allergy status to analgesic agent; V43.52XA Car driver injured in collision with other type car in traffic accident, initial encounter; Y93.I9 Activity, other involving external motion; Y92.410 Unspecified street and highway as the place of occurrence of the external cause; Y99.8 Other external cause status
CPT/HCPCS: 70450; 72125; 99284-25

== ENCOUNTER → 2017-07-27 | Outpatient (CLI) | payer OTHER ==
[2017-06-15 09:08] VITALS: BP 203/96
[~2017-07-27] MED LIST changes: +HYDR-2758 PO
--- NOTE | 2017-07-27 12:59 | RAD ---
Exam performed: CT scan of the abdomen and pelvis without contrast. Clinical Indication: Hematuria andflank pain. Date of Service: 07/27/17 CT abdomen and pelvis from [birth year]09/[birth year]] Technique: Contiguous helical acquisitions are obtained through the abdomen and pelvis without IV contrast. Sagittal and coronal reformatted images are obtained and reviewed. CT abdomen and pelvis findings: The lung bases are essentially clear. Visualized heart is normal. Lack of IV contrast limits evaluation of abdominal viscera, however the , spleen and pancreas are normal. Both adrenal glands and bilateral kidneys are normal in size without hydronephrosis or nephrolithiasis. Aorta is normal in caliber without aneurysm. IVC filter. The small and large bowel loops are nondilated and unremarkable. Small ventral abdominal wall defect in the umbilical region containing omental fat. Distal ureters are nondilated. Urinary bladder is decompressed and thick walled. [Uterus is anteverted. No adnexal masses seen.] . Mild colonic diverticulosis. No free or focal fluid collections are identified. Multilevel vertebroplasty seen. Impression: 1. No acute intra-abdominal or pelvic process detected. No evidence of urolithiasis. 2. Small ventral abdominal wall defect containing omental fat. PQRS Compliance Statement: One or more of the following individualized dose reduction techniques were utilized for this examination: 1. Automated exposure control 2. Adjustment of the mA and/or kV according to patient size 3. Use of iterative reconstruction technique
== END | disposition home or self-care (01) ==
LOC: CT 07:21
PROVIDERS: ATTEND Physician Assistant Medical
DX: N20.0 Calculus of kidney (principal); K57.30 Diverticulosis of large intestine without perforation or abscess without bleeding
CPT/HCPCS: 74176

== ENCOUNTER 2017-08-15 07:20 | Emergency (ER) | payer OTHER ==
[~2017-08-15] VITALS: Ht 185.4 cm; Wt 215.5 kg
--- NOTE | 2017-08-15 07:43 | PHYS DOC ---
Past Medical History Past Medical History: Asthma, Ovarian Cyst, Other Additional Past Medical Histor: EPILEPSY,VAGAL NERVE STIMULATOR IN THE UPPER LEFT CHEST,BECHETS,OBESITY Past Surgical History: Appendectomy, Cholecystectomy, Tonsillectomy Additional Past Surgical Histo: PORTACATH RIGHT CHEST,RIGHT KNEE Alcohol Use: Rarely Drug Use: None Adult General Chief Complaint Chief Complaint: COUGH HPI HPI Patient is a 32 year old female with a history of asthma who presents with one- week history of progressively worse shortness of breath cough congestion and chills; no fever. Seen by primary care physician on Sunday placed on cephalosporin and prednisone. 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 Denies any leg pain or swelling. Prior history of DVT many many years ago like; Not on anticoagulation. Denies any chest pain. 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 Review of Systems Review of Systems Constitutional: Denies fever or chills [] Eyes: Denies change in visual acuity, redness, or eye pain [] HENT: Denies nasal congestion or sore throat [] Respiratory: Denies cough or shortness of breath [] Cardiovascular: No additional information not addressed in HPI [] GI: Denies abdominal pain, nausea, vomiting, bloody stools or diarrhea [] : Denies dysuria or hematuria [] Musculoskeletal: Denies back pain or joint pain [] Integument: Denies rash or skin lesions [] Neurologic: Denies headache, focal weakness or sensory changes [] Endocrine: Denies polyuria or polydipsia [] Current Medications Current Medications Current Medications Medications (Trade) Dose Ordered Sig/Munira Start Time Stop Time Status Last Admin Dose Admin Albuterol Sulfate (Ventolin Neb Soln) 7.5 mg 1X ONCE 08/15/17 07:45 08/15/17 07:46 DC 08/15/17 07:50 7.5 MG Allergies Allergies Allergies Coded Allergies Type Severity Reaction Last Updated Verified Penicillins Allergy Intermediate Swellingand hives 07/27/17 Yes amoxicillin Allergy Intermediate Swelling and hives 07/27/17 Yes aspirin Allergy Intermediate Hives, OK with premed 07/27/17 Yes iodine Allergy Intermediate Hives iv contrast dye 07/27/17 Yes Physical Exam Physical Exam Constitutional: Well developed, well nourished, morbidly obese, mild respiratory distress, non-toxic appearance. [] HENT: Normocephalic, atraumatic, bilateral external ears normal, oropharynx moist, no oral exudates, nose normal. [] Eyes: PERRLA, EOMI, conjunctiva normal, no discharge. [] Neck: Normal range of motion, no tenderness, supple, no stridor. [] Cardiovascular:Heart rate regular rhythm, no murmur [] Lungs & Thorax: Bilateral breath sounds faint wheezing to auscultation [] Abdomen: Bowel sounds normal, soft, no tenderness, no masses, no pulsatile masses. [] Skin: Warm, dry, no erythema, no rash. [] Back: No tenderness, no CVA tenderness. [] Extremities: No tenderness, no cyanosis, no clubbing, ROM intact, no edema. [] Neurologic: Alert and oriented X 3, normal motor function, normal sensory function, no focal deficits noted. [] Psychologic: Affect normal, judgement normal, mood normal. [] Current Patient Data Vital Signs Vital Signs Date Time Temp Pulse Resp B/P (MAP) Pulse Ox O2 Delivery O2 Flow Rate FiO2 08/15/17 08:38 119 21 183/90 (121) 98 Room Air 08/15/17 07:43 98.2 98.2 Lab Values Laboratory Tests Test 08/15/17 08:02 08/15/17 08:10 Influenza Type A Antigen Negative (NEGATIVE) Influenza Type B Antigen Negative (NEGATIVE) White Blood Count 12.3 x10^3/uL (4.0-11.0) H Red Blood Count 4.84 x10^6/uL (3.50-5.40) Hemoglobin 13.4 g/dL (12.0-15.5) Hematocrit 40.8 % (36.0-47.0) Mean Corpuscular Volume 84 fL (79-100) Mean Corpuscular Hemoglobin 28 pg (25-35) Mean Corpuscular Hemoglobin Concent 33 g/dL (31-37) Red Cell Distribution Width 15.5 % (11.5-14.5) H Platelet Count 164 x10^3/uL (140-400) Neutrophils (%) (Auto) 83 % (31-73) H Lymphocytes (%) (Auto) 12 % (24-48) L Monocytes (%) (Auto) 5 % (0-9) Eosinophils (%) (Auto) 0 % (0-3) Basophils (%) (Auto) 1 % (0-3) Neutrophils # (Auto) 10.2 x10^3uL (1.8-7.7) H Lymphocytes # (Auto) 1.4 x10^3/uL (1.0-4.8) Monocytes # (Auto) 0.6 x10^3/uL (0.0-1.1) Eosinophils # (Auto) 0.0 x10^3/uL (0.0-0.7) Basophils # (Auto) 0.1 x10^3/uL (0.0-0.2) D-Dimer (Blaire) 0.35 ug/mlFEU (0.00-0.50) Sodium Level 136 mmol/L (136-145) Potassium Level 3.7 mmol/L (3.5-5.1) Chloride Level 101 mmol/L (98-107) Carbon Dioxide Level 22 mmol/L (21-32) Anion Gap 13 (6-14) Blood Urea Nitrogen 11 mg/dL (7-20) Creatinine 0.8 mg/dL (0.6-1.0) Estimated GFR (Cockcroft-Gault) 84.2 Glucose Level 100 mg/dL (70-99) H Calcium Level 8.9 mg/dL (8.5-10.1) Laboratory Tests 08/15/17 08:10 Laboratory Tests 08/15/17 08:10 EKG EKG [] Radiology/Procedures Radiology/Procedures Chest x-ray[negative per my review Course & Med Decision Making Course & Med Decision Making Pertinent Labs and Imaging studies reviewed. (See chart for details) Plan of care will be to check labs and obtain chest x-ray and give breathing treatments. Patient responded well to breathing treatments. She was slightly tachycardic post treatment. D-dimer was negative white blood cell count 12,000 which is nonspecific otherwise labs were unremarkable. Influenza A and B-. Patient will be taking tonight off from work. [] Dragon Disclaimer Dragon Disclaimer This electronic medical record was generated, in whole or in part, using a voice recognition dictation system. Departure Departure Impression: Primary Impression: Bronchitis Additional Impression: Asthma exacerbation Disposition: 01 HOME, SELF-CARE Condition: STABLE Referrals: DENI KAHN MD (PCP) Problem Qualifiers BREWER,BILL B MD Aug 15, 2017 07:43
[2017-08-15] MEDS ORDERED: ALBUTEROL SULFATE 2.5 MG/3 ML NEBU. NEB ONE (07:45)
--- NOTE | 2017-08-15 07:59 | RAD ---
Portable chest, 08/15/2017: History: Cough Comparison is made to a study from 12/14/2016. A right Port-A-Cath extends into the superior vena cava. An electronic device projects over the left mid chest with a lead extending into the left lower neck is unchanged. The heart size and pulmonary vascularity are normal. No pulmonary infiltrates are seen. There is no evidence of pleural fluid. IMPRESSION: No acute cardiopulmonary abnormality is detected.
[2017-08-15 08:31] LABS: BASO # 0.1 x10^3/uL (0.0-0.2); BASO % 1 % (0-3); EOS % 0 % (0-3); HEMATOCRIT 40.8 % (36.0-47.0); HEMOGLOBIN 13.4 g/dL (12.0-15.5); LYMPH # 1.4 x10^3/uL (1.0-4.8); LYMPH % 12 % (24-48); MEAN CORPUSCULAR HEMOGLOBIN 28 pg (25-35); MEAN CORPUSCULAR HGB CONC 33 g/dL (31-37); MEAN CORPUSCULAR VOLUME 84 fL (79-100); MONO % 5 % (0-9); NEUT % 83 % (31-73); PLATELET COUNT 164 x10^3/uL (140-400); RED BLOOD COUNT 4.84 x10^6/uL (3.50-5.40); RED CELL DISTRIBUTION WIDTH 15.5 % (11.5-14.5); WHITE BLOOD COUNT 12.3 x10^3/uL (4.0-11.0)
[2017-08-15 08:37] LABS: CALCIUM 8.9 mg/dL (8.5-10.1); CREATININE 0.8 mg/dL (0.6-1.0); GFR 84.2; POTASSIUM 3.7 mmol/L (3.5-5.1)
[2017-08-15 08:38] VITALS: BP 183/90
[2017-08-15 08:46] LABS: OBC FLU VALID
== END 2017-08-15 09:06 | disposition home or self-care (01) ==
LOC: ER 07:20
DX: J45.901 Unspecified asthma with (acute) exacerbation (principal); E66.9 Obesity, unspecified; Z88.0 Allergy status to penicillin; Z88.1 Allergy status to other antibiotic agents; Z88.8 Allergy status to other drugs, medicaments and biological substances; Z88.6 Allergy status to analgesic agent; Z68.44 Body mass index [BMI] 60.0-69.9, adult; Z86.718 Personal history of other venous thrombosis and embolism; Z90.49 Acquired absence of other specified parts of digestive tract
CPT/HCPCS: 36415; 71010; 80048; 85025; 85379; 87804; 94250; 94640; 99285; J7613

== ENCOUNTER → 2017-08-22 | Outpatient (CLI) | payer OTHER ==
[2017-08-15 08:38] VITALS: BP 183/90
--- NOTE | 2017-08-22 11:22 | RAD ---
EXAM: Chest, 2 views. HISTORY: Cough and wheezing. COMPARISON: 08/15/2017. FINDINGS: Frontal and lateral views of the chest are obtained. There is no infiltrate, effusion or pneumothorax. The heart is normal in size. There is a vagal nerve study moderate degenerative overlying the left thorax and base of the left neck. There is a right chest wall port catheter with the tip in the superior vena cava. There is a moderate lumbar compression fracture with vertebroplasty changes. IMPRESSION: No acute pulmonary finding.
== END | disposition home or self-care (01) ==
LOC: RAD 10:42
PROVIDERS: ATTEND Physician Assistant Medical
DX: J45.909 Unspecified asthma, uncomplicated (principal); J40 Bronchitis, not specified as acute or chronic; M48.56XA Collapsed vertebra, not elsewhere classified, lumbar region, initial encounter for fracture; K52.1 Toxic gastroenteritis and colitis
CPT/HCPCS: 71020

== ENCOUNTER 2017-10-30 07:52 | Emergency (ER) | payer OTHER ==
[~2017-10-30] VITALS: Ht 188 cm; Wt 201.8 kg
[~2017-10-30 07:52] MED LIST changes: -LAMO150T PO; +LAMO150T2 PO; -LAMO200T PO; +LAMO200T2 PO
[2017-10-30 08:07] VITALS: BP 180/135
--- NOTE | 2017-10-30 08:08 | PHYS DOC ---
Past Medical History Past Medical History: Asthma, Ovarian Cyst, Other Additional Past Medical Histor: EPILEPSY,VAGAL NERVE STIMULATOR IN THE UPPER LEFT CHEST,BECHETS,OBESITY Past Surgical History: Appendectomy, Cholecystectomy, Tonsillectomy Additional Past Surgical Histo: PORTACATH RIGHT CHEST,RIGHT KNEE, SPENCER FILTER Alcohol Use: Rarely Drug Use: None Adult General Chief Complaint Chief Complaint: COUGH HPI HPI Patient is a 32 year old female with a history of asthma presents to the ED complaining of cough x 5 days. States she has been using her nebulizer at home but is now out of her refills. Associated symptoms include subjective fever, rhinorrhea, sore throat and ear pain. No prior admissions for her asthma issues. Denies chest pain, dizziness, weakness, headache, n/v, abdominal pain, conjunctivitis or rash. Review of Systems Review of Systems Constitutional: Complains of subjective fever. Denies chills [] Eyes: Denies change in visual acuity, redness, or eye pain [] HENT: Complains of sore throat and rhinorrhea. [] Respiratory: Complains of cough. Denies shortness of breath [] Cardiovascular: No additional information not addressed in HPI [] GI: Denies abdominal pain, nausea, vomiting, bloody stools or diarrhea [] : Denies dysuria or hematuria [] Musculoskeletal: Denies back pain or joint pain [] Integument: Denies rash or skin lesions [] Neurologic: Denies headache, focal weakness or sensory changes [] Endocrine: Denies polyuria or polydipsia [] All other systems were reviewed and found to be within normal limits, except as documented in this note. Current Medications Current Medications Current Medications Medications (Trade) Dose Ordered Sig/Munira Start Time Stop Time Status Last Admin Dose Admin Albuterol/ Ipratropium (Duoneb) 3 ml 1X ONCE 10/30/17 08:15 10/30/17 08:16 DC 10/30/17 08:13 3 ML Methylprednisolone Sodium Succinate (SOLU-Medrol 125MG VIAL) 125 mg 1X ONCE 10/30/17 08:15 10/30/17 08:16 DC 10/30/17 08:13 125 MG Allergies Allergies Allergies Coded Allergies Type Severity Reaction Last Updated Verified Penicillins Allergy Intermediate Swellingand hives 09/10/17 Yes amoxicillin Allergy Intermediate Swelling and hives 09/10/17 Yes aspirin Allergy Intermediate Hives, OK with premed 09/10/17 Yes iodine Allergy Intermediate Hives iv contrast dye 09/10/17 Yes Physical Exam Physical Exam Constitutional: Well developed, well nourished, no acute distress, non-toxic appearance. [] HENT: Normocephalic, atraumatic, bilateral external ears normal, oropharynx moist, no oral exudates, nose normal. [] Eyes: PERRLA, EOMI, conjunctiva normal, no discharge. [] Neck: Normal range of motion, no tenderness, supple, no stridor. [] Cardiovascular:Heart rate regular rhythm, no murmur [] Lungs & Thorax: Bilateral breath sounds. MILD WHEEZING BILATERALLY.[] Abdomen: Bowel sounds normal, soft, no tenderness, no masses, no pulsatile masses. [] Skin: Warm, dry, no erythema, no rash. [] Back: No tenderness, no CVA tenderness. [] Extremities: No tenderness, no cyanosis, no clubbing, ROM intact, no edema. [] Neurologic: Alert and oriented X 3, normal motor function, normal sensory function, no focal deficits noted. [] Psychologic: Affect normal, judgement normal, mood normal. [] Current Patient Data Vital Signs Vital Signs Date Time Temp Pulse Resp B/P (MAP) Pulse Ox O2 Delivery O2 Flow Rate FiO2 10/30/17 08:16 98 Room Air 10/30/17 08:07 98.6 126 24 98.6 Lab Values Laboratory Tests Test 10/30/17 08:10 10/30/17 08:35 Influenza Type A Antigen Negative (NEGATIVE) Influenza Type B Antigen Negative (NEGATIVE) POC Urine HCG, Qualitative Hcg negative (Negative) EKG EKG [] Radiology/Procedures Radiology/Procedures PROCEDURE: CHEST PA & LATERAL Indication: Productive cough for one week. Time of exam 0850 hours. Comparison is made with prior exam from 08/22/2017. The heart size is stable. Right chest wall port remains in place. Battery pack overlies the left hemithorax. The lungs are clear. No infiltrate, effusion or pneumothorax is seen. Impression: Stable chest. No acute feature is detected.[] Course & Med Decision Making Course & Med Decision Making Pertinent Labs and Imaging studies reviewed. (See chart for details) []Discussed imaging findings with patient. Patient's wheezing improved after breathing treatment. Patient states she is feeling much better. Patient tachycardia on reexamination. States albuterol makes her heart rate increase. Her blood pressure is also elevated. Patient is denying any cardiac related symptoms at this time. 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 Discussed further workup. Patient states she would rather go home and will return if she worsens. States she has had the same symptoms in the past. Will discharge with azithromycin, prednisone, nebulizer refills and cough suppressant. Discussed the importance of follow-up with PCP in one to 2 days. Provided contact information/education. Discussed reasons to return to the ED. Patient understands and agrees with plan. Dragon Disclaimer Dragon Disclaimer This electronic medical record was generated, in whole or in part, using a voice recognition dictation system. Departure Departure Impression: Primary Impression: Acute bronchitis Referrals: DENI KAHN MD (PCP) Patient Instructions: Acute Bronchitis Scripts Guaifenesin/Codeine Phosphate (CHERATUSSIN AC SYRUP) 118 Ml Liquid 5 ML PO PRN Q6HRS, #120 ML Prov: KYRA RIVERA 10/30/17 Albuterol Sulfate (ALBUTEROL SULFATE CONC NEB SOLN) 2.5 Mg/0.5 Ml Vial.neb 1 VIAL NEB Q4HRS, #30 VIAL 1 Refill Prov: KYRA RIVERA 10/30/17 Prednisone (PREDNISONE) 20 Mg Tablet 2 TAB PO DAILY, #10 TAB Prov: KYRA RIVERA 10/30/17 Azithromycin (AZITHROMYCIN TABLET) 250 Mg Tablet 1 PKG PO UD, #6 TAB Prov: KYRA RIVERA 10/30/17 KYRA RIVERA Oct 30, 2017 08:07
[2017-10-30] MEDS ORDERED: IPRATRPIUM/ALBUTEROL 0.5/2.5MG 3 ML NEBU. NEB ONE (08:15)
[2017-10-30] MEDS ORDERED: methylPREDNISolone SOD SUCC PF 125 MG/2 ML VIAL. IM ONE (08:15)
[2017-10-30 08:48] LABS: OBC FLU VALID
--- NOTE | 2017-10-30 09:07 | RAD ---
Indication: Productive cough for one week. Time of exam 0850 hours. Comparison is made with prior exam from 08/22/2017. The heart size is stable. Right chest wall port remains in place. Battery pack overlies the left hemithorax. The lungs are clear. No infiltrate, effusion or pneumothorax is seen. Impression: Stable chest. No acute feature is detected.
[2017-10-30] MEDS ORDERED: PRED20TA PO (09:17)
[2017-10-30] MEDS ORDERED: ALBU2.5V14 NEB (09:17)
[2017-10-30] MEDS ORDERED: GUAI118L20 PO (09:17)
[2017-10-30] MEDS ORDERED: AZIT250T6 PO (09:17)
== END 2017-10-30 09:25 | disposition home or self-care (01) ==
LOC: ER 07:52
DX: J20.9 Acute bronchitis, unspecified (principal); J45.909 Unspecified asthma, uncomplicated; G40.909 Epilepsy, unspecified, not intractable, without status epilepticus; E66.9 Obesity, unspecified; Z68.43 Body mass index [BMI] 50.0-59.9, adult; Z88.0 Allergy status to penicillin; Z79.899 Other long term (current) drug therapy; Z88.1 Allergy status to other antibiotic agents; Z88.6 Allergy status to analgesic agent; Z91.041 Radiographic dye allergy status
CPT/HCPCS: 71020; 81025; 87804; 94640; 96372; 99285; J2930; J7620; 99284

== ENCOUNTER → 2017-11-16 | Outpatient (CLI) | payer OTHER ==
[2017-11-08 09:10] VITALS: BP 197/94
[~2017-11-16] MED LIST changes: +ALBU2.5V14 NEB; +AZIT250T6 PO; +GUAI118L20 PO; +PRED20TA PO
--- NOTE | 2017-11-16 09:58 | RAD ---
Indication: Cough and bronchitis. Time of exam 0944 hours. Correlation is made with prior study from 10/30/2017. Right chest wall port has tip overlying the SVC. Stimulator battery pack overlies the left chest. The heart size is stable. The lungs are clear. No infiltrate or effusion is seen. There is no pneumothorax. Impression: Stable chest. No acute feature is detected.
== END | disposition home or self-care (01) ==
LOC: RAD 09:28
PROVIDERS: ATTEND Physician Assistant Medical
DX: J20.9 Acute bronchitis, unspecified (principal); J45.41 Moderate persistent asthma with (acute) exacerbation
CPT/HCPCS: 71020

== ENCOUNTER 2017-12-07 08:30 | Emergency (ER) | payer SELFPAY, OTHER ==
[2017-12-07] MEDS: ACETAMINOPHEN 500 MG TABLET PO (09:13)
[2017-12-07] MEDS: amLODIPine BESYLATE 10 MG TABLET PO (09:14)
[2017-12-07] MEDS: DOXYCYCLINE HYCLATE 100 MG TABLET PO (09:49)
== END 2017-12-07 10:01 | disposition home or self-care (01) ==
LOC: ER 08:30
DX: L03.116 Cellulitis of left lower limb (principal); I10 Essential (primary) hypertension; J45.909 Unspecified asthma, uncomplicated; G40.909 Epilepsy, unspecified, not intractable, without status epilepticus; E66.01 Morbid (severe) obesity due to excess calories; Z68.44 Body mass index [BMI] 60.0-69.9, adult; Z90.49 Acquired absence of other specified parts of digestive tract; Z88.0 Allergy status to penicillin; Z88.1 Allergy status to other antibiotic agents; Z91.041 Radiographic dye allergy status; Z88.6 Allergy status to analgesic agent; Z86.711 Personal history of pulmonary embolism; Z86.718 Personal history of other venous thrombosis and embolism; Z95.828 Presence of other vascular implants and grafts
CPT/HCPCS: 93971; 99284-25

== ENCOUNTER → 2018-01-21 | Outpatient (CLI) | payer OTHER ==
[2018-01-21 07:57] LABS: ADD MAN DIFF? NO; BASO % 1 % (0-3); EOS # 0.4 x10^3/uL (0.0-0.7); EOS % 7 % (0-3); HEMATOCRIT 39.2 % (36.0-47.0); LYMPH % 18 % (24-48); MEAN CORPUSCULAR HEMOGLOBIN 29 pg (25-35); MEAN CORPUSCULAR HGB CONC 33 g/dL (31-37); MEAN CORPUSCULAR VOLUME 87 fL (79-100); MONO # 0.5 x10^3/uL (0.0-1.1); MONO % 8 % (0-9); NEUT # 3.8 x10^3uL (1.8-7.7); NEUT % 66 % (31-73); PLATELET COUNT 145 x10^3/uL (140-400); RED BLOOD COUNT 4.53 x10^6/uL (3.50-5.40); RED CELL DISTRIBUTION WIDTH 14.8 % (11.5-14.5); WHITE BLOOD COUNT 5.7 x10^3/uL (4.0-11.0)
[2018-01-21 08:23] LABS: ALBUMIN 3.5 g/dL (3.4-5.0); ALBUMIN/GLOBULIN RATIO 0.9 (1.0-1.7); ALK PHOS 49 U/L (46-116); ALT (SGPT) 41 U/L (14-59); ANION GAP 12 (6-14); AST (SGOT) 25 U/L (15-37); BLOOD UREA NITROGEN 13 mg/dL (7-20); BUN/CREATININE RATIO 14 (6-20); CALCIUM 8.9 mg/dL (8.5-10.1); CARBON DIOXIDE 25 mmol/L (21-32); CHLORIDE 102 mmol/L (98-107); CREATININE 0.9 mg/dL (0.6-1.0); GFR 73.5; GLUCOSE 116 mg/dL (70-99); POTASSIUM 3.7 mmol/L (3.5-5.1); SODIUM 139 mmol/L (136-145); TOTAL BILIRUBIN 0.4 mg/dL (0.2-1.0); TOTAL PROTEIN 7.3 g/dL (6.4-8.2)
[2018-01-23 13:00] LABS: T-SPOT TB TEST(OXFORD) SEE SEPARATE REPORT
== END | disposition home or self-care (01) ==
LOC: LAB 07:17
DX: K50.90 Crohn's disease, unspecified, without complications (principal)
CPT/HCPCS: 36415; 80053; 85025; 86481

== ENCOUNTER → 2018-03-25 | Outpatient (CLI) | payer OTHER ==
[~2018-03-25] MED LIST changes: -ALBU2.5V14 NEB; -AMLO10TA2 PO; -AZAT50TA20 PO; -AZIT250T6 PO; -CLOM50TA2 PO; -CYCL1DRO OP; -ERYT250C8 PO; -FOLI1TAB16 PO; -GUAI118L20 PO; +HEPARIN PF 500 UNIT/5 ML DISP.SYRIN. IV; -HYDR-2758 PO; -HYDR-971 PO; -IBUP-1007 PO; -INFL100V IV; -LAMO150T2 PO; -LAMO200T2 PO; -LEVO750T5 PO; -LORA-434 PO; -METF500T4 PO; -MULT-18 PO; -OLOP5DRO OP; -OMEP40CA5 PO; -OXYC-323 PO; -PRED20TA PO; -PRED5DRO16 OP; -PROG200C2 PO; -TIZA4CAP PO; -TRAZ100T12 PO; -VENTOLIN HFA18 GM IH
[2018-03-25] MEDS: diphenhydrAMINE HCL 25 MG CAPSULE PO (07:48)
[2018-03-25] MEDS: INFLIXIMAB IV (07:48)
[2018-03-25] MEDS: NORMAL SALINE IV (07:48)
[2018-03-25] MEDS: ACETAMINOPHEN 325 MG TABLET. PO (07:48)
== END | disposition home or self-care (01) ==
LOC: OPS 06:36
DX: K50.019 Crohn's disease of small intestine with unspecified complications (principal); I10 Essential (primary) hypertension; F41.9 Anxiety disorder, unspecified; K21.9 Gastro-esophageal reflux disease without esophagitis; F32.9 Major depressive disorder, single episode, unspecified; J45.31 Mild persistent asthma with (acute) exacerbation; E66.01 Morbid (severe) obesity due to excess calories; Z68.44 Body mass index [BMI] 60.0-69.9, adult; Z86.718 Personal history of other venous thrombosis and embolism; Z86.711 Personal history of pulmonary embolism; Z95.828 Presence of other vascular implants and grafts; Z79.899 Other long term (current) drug therapy; Z90.49 Acquired absence of other specified parts of digestive tract
CPT/HCPCS: 96365; 96366; J1745; J7040; Q0163

== ENCOUNTER → 2018-04-16 | Outpatient (CLI) | payer OTHER ==
[2018-04-16 05:18] LABS: ADD MAN DIFF? NO
[2018-04-16 05:35] LABS: BASO % 0 % (0-3); EOS # 0.4 x10^3/uL (0.0-0.7); EOS % 3 % (0-3); HEMATOCRIT 40.4 % (36.0-47.0); HEMOGLOBIN 13.6 g/dL (12.0-15.5); LYMPH # 1.7 x10^3/uL (1.0-4.8); LYMPH % 16 % (24-48); MEAN CORPUSCULAR HEMOGLOBIN 28 pg (25-35); MEAN CORPUSCULAR HGB CONC 34 g/dL (31-37); MEAN CORPUSCULAR VOLUME 85 fL (79-100); MONO # 0.5 x10^3/uL (0.0-1.1); MONO % 5 % (0-9); NEUT # 8.4 x10^3uL (1.8-7.7); NEUT % 76 % (31-73); PLATELET COUNT 182 x10^3/uL (140-400); RED BLOOD COUNT 4.77 x10^6/uL (3.50-5.40); RED CELL DISTRIBUTION WIDTH 15.8 % (11.5-14.5)
[2018-04-16 05:52] LABS: NEG OBC SER NEG; POS OBC SER POS; PREG TEST PT QUAL NEGATIVE (NEG)
[2018-04-16 06:09] LABS: ALBUMIN 3.5 g/dL (3.4-5.0); ALK PHOS 69 U/L (46-116); ALT (SGPT) 40 U/L (14-59); ANION GAP 9 (6-14); AST (SGOT) 22 U/L (15-37); BLOOD UREA NITROGEN 11 mg/dL (7-20); BUN/CREATININE RATIO 14 (6-20); CALCIUM 8.9 mg/dL (8.5-10.1); CARBON DIOXIDE 28 mmol/L (21-32); CHLORIDE 102 mmol/L (98-107); CREATININE 0.8 mg/dL (0.6-1.0); GFR 83.7; GLUCOSE 92 mg/dL (70-99); POTASSIUM 3.8 mmol/L (3.5-5.1); SODIUM 139 mmol/L (136-145); TOTAL BILIRUBIN 0.6 mg/dL (0.2-1.0); TOTAL PROTEIN 7.1 g/dL (6.4-8.2)
[2018-04-16 06:26] LABS: THYROID STIM HORMONE (TSH) 1.552 uIU/mL (0.358-3.74)
== END | disposition home or self-care (01) ==
LOC: SPEC 04:28
DX: N91.2 Amenorrhea, unspecified (principal); M35.2 Behcet's disease; I10 Essential (primary) hypertension
CPT/HCPCS: 36415; 80053; 84443; 84703; 85025

== ENCOUNTER 2018-05-06 11:19 | Emergency (ER) | payer OTHER ==
[2018-05-06] MEDS: ACETAMINOPHEN 500 MG TABLET PO (12:30)
[2018-05-06] MEDS: IV NORMAL SALINE 1000ML BAG 1,000 ML IV (12:30)
[2018-05-06 12:51] LABS: URINE HCG POC HCG NEGATIVE (Negative)
[2018-05-06] MEDS: diphenhydrAMINE 50 MG/ML VIAL IVP (13:30)
[2018-05-06] MEDS: METOCLOPRAMIDE HCL 10 MG/2 ML VIAL. IV (13:31)
[2018-05-06] MEDS: KETOROLAC 30 MG/ML INJ. IV (13:33)
[2018-05-06] MEDS ORDERED: HEPARIN PF 500 UNIT/5 ML DISP.SYRIN. IV (14:45)
== END 2018-05-06 15:17 | disposition home or self-care (01) ==
LOC: ER 11:19
DX: G43.909 Migraine, unspecified, not intractable, without status migrainosus (principal); I10 Essential (primary) hypertension; Z88.0 Allergy status to penicillin; Z88.1 Allergy status to other antibiotic agents; Z88.6 Allergy status to analgesic agent; Z91.041 Radiographic dye allergy status
CPT/HCPCS: 70450; 70486; 81025; 96374; 96375; 99284-25; J1200; J1885; J2765; J7030

== ENCOUNTER 2018-06-02 21:43 | Emergency (ER) | payer OTHER ==
[2018-06-02] MEDS ORDERED: 0.9 % SOD CHL for STERILE FIELD 10 ML DISP.SYRIN. (22:01)
[2018-06-02] MEDS: KETOROLAC 15 MG/ML VIAL. IV (22:38)
[2018-06-02] MEDS: IV NORMAL SALINE 1000ML BAG 1,000 ML IV (22:39)
[2018-06-02 22:51] LABS: ADD MAN DIFF? NO
[2018-06-02 22:58] LABS: URINE HCG POC HCG NEGATIVE (Negative)
[2018-06-02 22:58] LABS: BASO % 0 % (0-3); EOS # 0.2 x10^3/uL (0.0-0.7); EOS % 3 % (0-3); HEMATOCRIT 38.5 % (36.0-47.0); HEMOGLOBIN 13.2 g/dL (12.0-15.5); LYMPH # 0.9 x10^3/uL (1.0-4.8); LYMPH % 11 % (24-48); MEAN CORPUSCULAR HEMOGLOBIN 29 pg (25-35); MEAN CORPUSCULAR HGB CONC 34 g/dL (31-37); MEAN CORPUSCULAR VOLUME 85 fL (79-100); MONO # 0.5 x10^3/uL (0.0-1.1); MONO % 6 % (0-9); NEUT # 6.7 x10^3uL (1.8-7.7); NEUT % 80 % (31-73); PLATELET COUNT 151 x10^3/uL (140-400); RED BLOOD COUNT 4.54 x10^6/uL (3.50-5.40); RED CELL DISTRIBUTION WIDTH 15.1 % (11.5-14.5); WHITE BLOOD COUNT 8.4 x10^3/uL (4.0-11.0)
[2018-06-02 22:59] LABS: BILIRUBIN,URINE NEGATIVE (NEG); CLARITY,URINE CLOUDY; COLOR,URINE YELLOW; GLUCOSE,URINE NEGATIVE (NEG); NITRITE,URINE NEGATIVE (NEG); PROTEIN,URINE NEGATIVE (NEG-TRACE); UROBILINOGEN,URINE 0.2 mg/dL (0.2 mg/dL)
[2018-06-02 23:04] LABS: ANION GAP 8 (6-14); BACTERIA,URINE MANY /HPF (0-FEW); BLOOD UREA NITROGEN 15 mg/dL (7-20); BUN/CREATININE RATIO 19 (6-20); CALCIUM 8.7 mg/dL (8.5-10.1); CARBON DIOXIDE 26 mmol/L (21-32); CHLORIDE 105 mmol/L (98-107); CREATININE 0.8 mg/dL (0.6-1.0); GFR 83.7; GLUCOSE 107 mg/dL (70-99); POTASSIUM 3.7 mmol/L (3.5-5.1); RBC,URINE 0 /HPF (0-2); SODIUM 139 mmol/L (136-145); SQUAMOUS EPITHELIAL CELL,UR MANY /LPF
[2018-06-02 23:10] LABS: ALBUMIN 3.7 g/dL (3.4-5.0); ALBUMIN/GLOBULIN RATIO 1.1 (1.0-1.7); ALK PHOS 59 U/L (46-116); ALT (SGPT) 41 U/L (14-59); AST (SGOT) 20 U/L (15-37); TOTAL BILIRUBIN 0.4 mg/dL (0.2-1.0); TOTAL PROTEIN 7.2 g/dL (6.4-8.2)
[2018-06-03] MEDS: PROCHLORPERAZINE 10 MG/2 ML VIAL. IV (00:58)
[2018-06-03] MEDS: MIDAZOLAM HCL/PF 5 MG/5 ML VIAL. IV (00:59)
[2018-06-03] MEDS: HEPARIN PF 500 UNIT/5 ML DISP.SYRIN. IV (03:30)
== END 2018-06-03 03:34 | disposition home or self-care (01) ==
LOC: ER 06-03 03:34
DX: G43.109 Migraine with aura, not intractable, without status migrainosus (principal); R56.9 Unspecified convulsions; I10 Essential (primary) hypertension; Z88.0 Allergy status to penicillin; Z88.1 Allergy status to other antibiotic agents; Z88.6 Allergy status to analgesic agent; Z91.041 Radiographic dye allergy status
CPT/HCPCS: 36415; 80053; 81001; 81025; 85025; 87086; 96361; 96374; 96375; 96376; 99284-25; J0780; J1885; J2060; J2250; J7030

== ENCOUNTER 2018-09-20 06:16 | Day surgery (SDC) | payer OTHER ==
[~2018-09-20 06:16] MED LIST changes: +ALBU2.5V14 NEB; +AMLO10TA6 PO; +AZAT50TA20 PO; +AZIT250T6 PO; +BUPIVACAINE 0.25% 50 ML VIAL. ONE; +CLOM50TA16 PO; +CYCL1DRO OP; +DIAZ5TAB PO; +DOXY100T PO; +ERYT250C8 PO; +FOLI1TAB16 PO; +GUAI118L20 PO; -HEPARIN PF 500 UNIT/5 ML DISP.SYRIN. IV; +HEPARIN PF 500 UNIT/5 ML DISP.SYRIN. IV ONE; +HEPARIN for IV BOLUS 10,000 UNIT/10 ML VIAL. ONE; +HYDR-2758 PO; +HYDR-971 PO; +IBUP-1007 PO; +INFL100V IV; +LABE100T5 PO; +LAMO150T2 PO; +LAMO200T2 PO; +LEVO750T5 PO; +LORA-434 PO; +METF500T16 PO; +METH250T3 PO; +MOME13HF2 IH; +MULT-18 PO; +OLOP5DRO OP; +OMEP40CA5 PO; +OXYC-323 PO; +PRED20TA PO; +PRED5DRO16 OP; +PROG200C2 PO; +TIZA4CAP PO; +TRAZ-86 PO; +VENTOLIN HFA18 GM IH
[2018-09-20 06:45] LABS: U PREG PATIENT NEGATIVE (NEG)
[2018-09-20] MEDS ORDERED: fentaNYL PF VIAL 100 MCG/2 ML VIAL IV PRN (07:00)
[2018-09-20] MEDS ORDERED: HYDROmorphone 2 MG/ML VIAL IV PRN (07:00)
[2018-09-20] MEDS ORDERED: ONDANSETRON PF 4 MG/2 ML VIAL. IV PRN (07:00)
[2018-09-20] MEDS ORDERED: MORPHINE SULFATE 2 MG/ML VIAL. IV PRN (07:00)
[2018-09-20] MEDS ORDERED: LIDOCAINE 1% PF 2 ML VIAL. ID PRN (07:00)
[2018-09-20] MEDS ORDERED: IV RINGERS,LACTATED 1000ML 1,000 ML IV SCH (07:00)
[2018-09-20] MEDS ORDERED: PROCHLORPERAZINE 10 MG/2 ML VIAL. IV PRN (07:00)
[2018-09-20] MEDS ORDERED: PROPOFOL 20 ML IV ONE ×2 (08:20→08:23)
[2018-09-20] MEDS ORDERED: LIDOCAINE 2% PF Vial for OR 5 ML VIAL. ONE (08:20)
[2018-09-20] MEDS ORDERED: DEXAMETHASONE SOD PHOS 20 MG/5 ML VIAL. ONE (08:20)
[2018-09-20] MEDS ORDERED: SEVOFLURANE 16 TO 30 MINUTES. IH ONE (08:20)
[2018-09-20] MEDS ORDERED: ONDANSETRON PF 4 MG/2 ML VIAL. ONE (08:20)
[2018-09-20] MEDS ORDERED: fentaNYL PF VIAL 100 MCG/2 ML VIAL ONE ×3 (08:49→09:35)
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
[2018-09-20] MEDS ORDERED: PROCHLORPERAZINE 10 MG/2 ML VIAL. ONE (09:16)
[2018-09-20] MEDS: fentaNYL PF VIAL 100 MCG/2 ML VIAL IV PRN ×4 (09:18→09:44)
[2018-09-20] MEDS ORDERED: HYDR-971 PO (09:22)
[2018-09-20] MEDS ORDERED: HYDROcodone/APAP 5/325MG 1 TAB TABLET PO ONE ×2 (09:45)
[2018-09-20 10:23] VITALS: BP 124/78
--- NOTE | 2018-10-03 17:06 | RAD ---
EXAM: Chest, single view. HISTORY: Portacatheter placement. COMPARISON: 11/16/2017 FINDINGS: A single fluoroscopic image of the thorax is obtained. There is a port catheter with the tip in the superior vena cava. The total fluoroscopy time is not submitted with the image. IMPRESSION: Port catheter with the tip in the superior vena cava. Electronically signed by: Delilah Hernandez MD (10/03/2018 5:02 PM) [facility]
== END 2018-09-20 10:23 | disposition home or self-care (01) ==
LOC: SURG 06:16
PROVIDERS: ATTEND Surgery
DX: T82.598A Other mechanical complication of other cardiac and vascular devices and implants, initial encounter (principal); G40.909 Epilepsy, unspecified, not intractable, without status epilepticus; E28.2 Polycystic ovarian syndrome; M35.2 Behcet's disease; Z88.0 Allergy status to penicillin; Z88.1 Allergy status to other antibiotic agents; Z88.5 Allergy status to narcotic agent; Z88.6 Allergy status to analgesic agent; Z88.8 Allergy status to other drugs, medicaments and biological substances; E66.01 Morbid (severe) obesity due to excess calories; Z68.44 Body mass index [BMI] 60.0-69.9, adult; Z79.899 Other long term (current) drug therapy; Z86.718 Personal history of other venous thrombosis and embolism; Z90.49 Acquired absence of other specified parts of digestive tract; Z98.890 Other specified postprocedural states; Z80.42 Family history of malignant neoplasm of prostate; Z72.89 Other problems related to lifestyle; Y83.8 Other surgical procedures as the cause of abnormal reaction of the patient, or of later complication, without mention of misadventure at the time of the procedure; Y92.89 Other specified places as the place of occurrence of the external cause
CPT/HCPCS: 36582; 77001; 81025; A7015; C1788; J0780; J1100; J1644; J1956; J2001; J2405; J2704; J3010; J3490; 36556

== ENCOUNTER → 2018-11-22 | Outpatient (CLI) | payer OTHER ==
[2018-11-14 07:29] VITALS: BP 148/100
[~2018-11-22] MED LIST changes: -BUPIVACAINE 0.25% 50 ML VIAL. ONE; -HEPARIN PF 500 UNIT/5 ML DISP.SYRIN. IV ONE; -HEPARIN for IV BOLUS 10,000 UNIT/10 ML VIAL. ONE; -HYDR-2758 PO; +HYDR-2761 PO; +HYDR-3164 PO; -HYDR-971 PO; -OXYC-323 PO; +OXYC1TAB15 PO
--- NOTE | 2018-11-22 08:37 | RAD ---
Chest radiograph 11/22/2018 8:06 AM INDICATION: Preoperative. Elevated BMI COMPARISON: November 16, 2017 TECHNIQUE: Frontal and lateral views of the chest are provided. FINDINGS: The cardiomediastinal silhouette is within normal limits. Right chest wall infusion port catheter is in similar position. Left chest battery pack is in similar position with leads extending to the left neck base. There are no pleural effusions. There is no pulmonary vascular congestion. There is no pneumothorax. The lungs are clear. No significant osseous abnormality is identified. IMPRESSION: No acute cardiopulmonary process. Electronically signed by: Halie Mclain MD (11/22/2018 8:33 AM) [facility]
== END | disposition home or self-care (01) ==
LOC: RAD 07:30
PROVIDERS: ATTEND Neurological Surgery
DX: Z01.818 Encounter for other preprocedural examination (principal); G40.909 Epilepsy, unspecified, not intractable, without status epilepticus; Z88.8 Allergy status to other drugs, medicaments and biological substances; Z88.1 Allergy status to other antibiotic agents; Z91.041 Radiographic dye allergy status
CPT/HCPCS: 71046

== ENCOUNTER 2018-11-27 20:07 | Emergency (ER) | payer OTHER ==
[~2018-11-27] VITALS: Ht 188 cm; Wt 204.1 kg
[2018-11-27 21:45] VITALS: BP 165/76
[2018-11-27 21:45] LABS: BASO % 1 % (0-3); EOS # 0.3 x10^3/uL (0.0-0.7); EOS % 4 % (0-3); HEMATOCRIT 37.7 % (36.0-47.0); HEMOGLOBIN 12.6 g/dL (12.0-15.5); LYMPH # 1.1 x10^3/uL (1.0-4.8); LYMPH % 14 % (24-48); MEAN CORPUSCULAR HEMOGLOBIN 28 pg (25-35); MEAN CORPUSCULAR HGB CONC 34 g/dL (31-37); MEAN CORPUSCULAR VOLUME 83 fL (79-100); MONO # 0.4 x10^3/uL (0.0-1.1); MONO % 5 % (0-9); NEUT # 6.3 x10^3uL (1.8-7.7); NEUT % 77 % (31-73); PLATELET COUNT 135 x10^3/uL (140-400); RED BLOOD COUNT 4.56 x10^6/uL (3.50-5.40); RED CELL DISTRIBUTION WIDTH 15.1 % (11.5-14.5); WHITE BLOOD COUNT 8.2 x10^3/uL (4.0-11.0)
[2018-11-27 21:47] LABS: CALCIUM 9.3 mg/dL (8.5-10.1); CREATININE 0.7 mg/dL (0.6-1.0); GFR 97.6; POTASSIUM 4.2 mmol/L (3.5-5.1)
[2018-11-27 21:53] LABS: ALBUMIN 3.4 g/dL (3.4-5.0); ALBUMIN/GLOBULIN RATIO 0.9 (1.0-1.7); TOTAL BILIRUBIN 0.5 mg/dL (0.2-1.0); TOTAL PROTEIN 7.1 g/dL (6.4-8.2)
--- NOTE | 2018-11-27 22:27 | RAD ---
PQRS Compliance Statement: One or more of the following individualized dose reduction techniques were utilized for this examination: 1. Automated exposure control 2. Adjustment of the mA and/or kV according to patient size 3. Use of iterative reconstruction technique CT HEAD WITHOUT CONTRAST History: SEIZURE, HEAD INJURY, Comparison: CT head without contrast, May 06, 2018. Procedure: Axial images are obtained of the head from the skull base through the vertex without IV contrast. Findings: The ventricles and sulci are normal for the patient's age. No mass-effect, midline shift, hemorrhage, extra-axial fluid collection, or obvious acute infarction is identified. Basilar cisterns are patent. Pineal cyst with partial rim calcification is stable. Bone windows demonstrate no acute calvarial abnormality. The visualized paranasal sinuses are clear. Mastoid air cells are well aerated. IMPRESSION: No acute intracranial abnormality. Electronically signed by: Ap Belle MD (11/27/2018 10:23 PM) [facility]
[2018-11-27] MEDS ORDERED: LORA-434 PO (22:46)
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
== END 2018-11-27 23:00 | disposition home or self-care (01) ==
LOC: ER 20:07
DX: S00.83XA Contusion of other part of head, initial encounter (principal); R56.9 Unspecified convulsions; I10 Essential (primary) hypertension; G40.909 Epilepsy, unspecified, not intractable, without status epilepticus; G43.909 Migraine, unspecified, not intractable, without status migrainosus; Z88.0 Allergy status to penicillin; Z88.1 Allergy status to other antibiotic agents; Z91.041 Radiographic dye allergy status; Z88.6 Allergy status to analgesic agent; W22.8XXA Striking against or struck by other objects, initial encounter; Y93.89 Activity, other specified; Y92.89 Other specified places as the place of occurrence of the external cause; Y99.8 Other external cause status
CPT/HCPCS: 36415; 70450; 80053; 81025; 84702; 85025; 96374; 99284; J2060

== ENCOUNTER 2018-11-29 06:59 | Day surgery (SDC) | payer OTHER ==
[~2018-11-29] VITALS: Ht 188 cm; Wt 211.4 kg
[~2018-11-29 06:59] MED LIST changes: +BACITRACIN 50,000 UNIT in IV NORMAL SALINE 1000ML BAG 1,000 ML IRR ONE; +VANCOMYCIN 1GM IVPB FOR OMNI 250 ML IV ONE
[2018-11-29] MEDS ORDERED: LIDOCAINE 1% PF 2 ML VIAL. ID PRN (07:00)
[2018-11-29] MEDS ORDERED: HYDROmorphone 2 MG/ML VIAL IV PRN (07:00)
[2018-11-29] MEDS ORDERED: IV RINGERS,LACTATED 1000ML 1,000 ML IV SCH (07:00)
[2018-11-29] MEDS ORDERED: ONDANSETRON PF 4 MG/2 ML VIAL. IV PRN (07:00)
[2018-11-29] MEDS ORDERED: fentaNYL PF VIAL 100 MCG/2 ML VIAL IV PRN (07:00)
[2018-11-29] MEDS ORDERED: PROCHLORPERAZINE 10 MG/2 ML VIAL. IV PRN (07:00)
[2018-11-29] MEDS ORDERED: BUPIVACAINE MPF 0.5% 30 ML VIAL. ONE (07:16)
[2018-11-29] MEDS ORDERED: GELATIN SPONGE SIZE 100. ONE (07:16)
[2018-11-29] MEDS ORDERED: LIDOCAINE 1%/EPI 1:100,000 20 ML VIAL. ONE (07:16)
[2018-11-29] MEDS ORDERED: THROMBIN TOPICAL 20,000 UNIT SPRAY.SYRN KIT TP ONE (07:17)
[2018-11-29 07:18] LABS: U PREG PATIENT NEGATIVE (NEG)
[2018-11-29] MEDS ORDERED: fentaNYL PF VIAL 100 MCG/2 ML VIAL ONE (08:13)
[2018-11-29] MEDS ORDERED: MIDAZOLAM HCL/PF 2 MG/2 ML VIAL. ONE (08:13)
[2018-11-29] MEDS ORDERED: DESFLURANE 61 TO 120 MINUTES IH ONE (08:13)
[2018-11-29] MEDS ORDERED: SUCCINYLCHOLINE 200 MG/10 ML VIAL. ONE (08:14)
[2018-11-29] MEDS ORDERED: LIDOCAINE 2% PF Vial for OR 5 ML VIAL. ONE (08:14)
[2018-11-29] MEDS ORDERED: ONDANSETRON PF 4 MG/2 ML VIAL. ONE (08:14)
[2018-11-29] MEDS ORDERED: DEXAMETHASONE SOD PHOS 20 MG/5 ML VIAL. ONE (08:14)
[2018-11-29] MEDS ORDERED: ROCURONIUM 50 MG/5 ML VIAL. ONE (08:14)
[2018-11-29] MEDS ORDERED: GLYCOPYRROLATE 1 MG/5 ML VIAL. ONE (08:14)
[2018-11-29] MEDS ORDERED: NEOSTIGMINE METHYLSULFATE 5 MG/5 ML SYRINGE. ONE (08:14)
[2018-11-29] MEDS ORDERED: PROPOFOL 20 ML IV ONE (08:14)
[2018-11-29] MEDS: fentaNYL PF VIAL 100 MCG/2 ML VIAL IV PRN ×2 (10:05→10:16)
--- NOTE | 2018-11-29 10:06 | PDOC ---
BRIEF OPERATIVE NOTE Date: Nov 29, 2018 Pre-Op Diagnosis seizure disorder, depleted vagal nerve stimulator generator due to normal usage Post-Op Diagnosis same Procedure Performed removal and replacement of VNS generator left chest with interrogation and reprogramming of new generator Surgeon Lali Transmission Maintenance Supervisor none Anesthesia Type: General Blood Loss 5mL Findings normal impedances with new generator during and at completion of the procedure Complications none apparent BHASKAR ZENG MD Nov 29, 2018 10:06
[2018-11-29] MEDS ORDERED: HEPARIN PF 500 UNIT/5 ML DISP.SYRIN. IV ONE ×2 (10:24→11:15)
[2018-11-29] MEDS: MORPHINE SULFATE 4 MG/ML VIAL. IV PRN ×2 (10:27→10:39)
[2018-11-29] MEDS ORDERED: DIAZ5TAB PO (10:33)
[2018-11-29] MEDS ORDERED: OXYC1TAB15 PO (10:34)
[2018-11-29] MEDS ORDERED: SENN-37 PO (10:35)
[2018-11-29] MEDS ORDERED: oxyCODONE/APAP 5/325 1 TAB TABLET PO ONE (10:45)
[2018-11-29 11:15] VITALS: BP 132/68
--- NOTE | 2018-11-29 12:53 | OP ---
DATE OF SURGERY: 11/29/2018 SURGEON: Salinas Zeng MD BLAST SETTER: None. PROCEDURE: Removal and replacement of vagal nerve stimulator pulse generator at the left chest with reprogramming of a new stimulator. PREOPERATIVE DIAGNOSIS: Epilepsy with depleted vagal nerve stimulator generator. POSTOPERATIVE DIAGNOSIS: Epilepsy with depleted vagal nerve stimulator generator. ANESTHESIA: General. COMPLICATIONS: None. INDICATIONS FOR THE PROCEDURE: The patient is a 33-year-old female with a seizure disorder who derived significant benefit from a vagal nerve stimulator. She has a depleted intermittent pulse generator in the left chest secondary to normal usage and presents for replacement of this. Please refer to the patient's chart for additional details. DESCRIPTION OF PROCEDURE: After informed consent was obtained, the patient was brought into the operating room. She was placed under general anesthesia, she was placed in the supine position. All pressure points were checked and padded appropriately. Prophylactic vancomycin was administered. The patient's left chest was prepped and draped in the usual sterile fashion. The previous incision was incised with a 10 blade scalpel. The underlying soft tissues were dissected bluntly with a Lynne clamp with continuous palpation for any wires and sectioned with a 15 blade scalpel over the underlying Lynne clamp. Blunt dissection was carried out to approach the intermittent pulse generator. This was gently removed from the pocket without difficulty. The adjacent wire was noted to be grossly intact. The pulse generator was disconnected from the lead wire according to the wine blender specification. The new intermittent pulse generator was brought on to the field and connected to the lead wire and torqued to secure according to the wine blender's specification. The new pulse generator was reinserted into the pocket after pristine hemostasis was verified. This was secured to the underlying capsule with silk suture. Telemetry was utilized to verify that impedances were within normal limits and the generator was programmed to an output current of 2.5 milliamps with signal frequency of 30 Hz, pulse width was 500 milliseconds with signal on time of 30 seconds, signal off time of 1.1 minutes. The output current 2.75 milliamps with a pulse width of 500 milliseconds with signal on time of 60 seconds. The auto stem parameters were an output current of 2.5 milliamps with a pulse width of 500 milliseconds, signal on time was 30 seconds, tachycardia detection was on, heartbeat sensitivity with threshold % of 30, impedance was 984 ohms. Once this was complete, the wound was irrigated with antibiotic irrigation. Pristine hemostasis was verified and the underlying capsule and soft tissues were closed with 2-0 Vicryl in a simple interrupted fashion. Subcutaneous tissues reapproximated with 2-0 Vicryl in interrupted inverted fashion. Skin was reapproximated with brian. Parameters were again verified after complete closure of the wound. The wound was dressed with Xeroform, Telfa and Tegaderm. At the end of procedure, all needle and sponge counts were correct. The patient was extubated in the operating room and taken to recovery in stable condition. There were no intraprocedural complications apparent. SALINAS ZENG MD DR: ANGELA/lucio JOB#: [id number] / [id number]
== END 2018-11-29 11:20 | disposition home or self-care (01) ==
LOC: SURG 06:59
PROVIDERS: ATTEND Neurological Surgery
DX: G40.909 Epilepsy, unspecified, not intractable, without status epilepticus (principal); J45.909 Unspecified asthma, uncomplicated; K21.9 Gastro-esophageal reflux disease without esophagitis; I10 Essential (primary) hypertension; Z86.718 Personal history of other venous thrombosis and embolism; Z86.711 Personal history of pulmonary embolism; Z90.49 Acquired absence of other specified parts of digestive tract; Z98.890 Other specified postprocedural states; Z79.84 Long term (current) use of oral hypoglycemic drugs; Z79.899 Other long term (current) drug therapy; Z88.0 Allergy status to penicillin; Z88.1 Allergy status to other antibiotic agents; Z88.8 Allergy status to other drugs, medicaments and biological substances; Z88.5 Allergy status to narcotic agent
CPT/HCPCS: 61885; 81025; A7015; C1767; J0330; J0780; J1100; J2001; J2250; J2270; J2405; J2704; J3010; J3370; J3490; J7030; J7120; J2710

== ENCOUNTER → 2018-12-06 | Outpatient (CLI) | payer OTHER ==
[2018-11-29 11:15] VITALS: BP 132/68
[~2018-12-06] MED LIST changes: -AMLO10TA6 PO; +AMLO10TA8 PO; -BACITRACIN 50,000 UNIT in IV NORMAL SALINE 1000ML BAG 1,000 ML IRR ONE; +PROG200C10 PO; -PROG200C2 PO; +SENN-37 PO; -VANCOMYCIN 1GM IVPB FOR OMNI 250 ML IV ONE
[2018-12-06 17:29] LABS: BASO % 0 % (0-3); EOS # 0.5 x10^3/uL (0.0-0.7); EOS % 6 % (0-3); HEMOGLOBIN 12.8 g/dL (12.0-15.5); LYMPH # 1.3 x10^3/uL (1.0-4.8); LYMPH % 15 % (24-48); MEAN CORPUSCULAR HEMOGLOBIN 28 pg (25-35); MEAN CORPUSCULAR HGB CONC 34 g/dL (31-37); MEAN CORPUSCULAR VOLUME 83 fL (79-100); MONO # 0.5 x10^3/uL (0.0-1.1); MONO % 6 % (0-9); NEUT # 6.4 x10^3uL (1.8-7.7); NEUT % 73 % (31-73); PLATELET COUNT 140 x10^3/uL (140-400); RED BLOOD COUNT 4.57 x10^6/uL (3.50-5.40); RED CELL DISTRIBUTION WIDTH 15.1 % (11.5-14.5); WHITE BLOOD COUNT 8.8 x10^3/uL (4.0-11.0)
== END | disposition home or self-care (01) ==
LOC: LAB 16:43
PROVIDERS: ATTEND Physician Assistant Medical
DX: R50.9 Fever, unspecified (principal); R53.81 Other malaise; R21 Rash and other nonspecific skin eruption
CPT/HCPCS: 36415; 84145; 85025; 87040

== ENCOUNTER → 2018-12-20 | Outpatient (CLI) | payer OTHER ==
[~2018-12-20] VITALS: Ht 185.4 cm; Wt 216.4 kg
[~2018-12-20] MED LIST changes: +ACETAMINOPHEN 325 MG TABLET. PO ONE; +HEPARIN PF 500 UNIT/5 ML DISP.SYRIN. IV ONE; +INFLIXIMAB IV ONE; +NORMAL SALINE IV ONE; +diphenhydrAMINE HCL 25 MG CAPSULE PO ONE
[2018-12-20 07:29] VITALS: BP 144/86
[2018-12-20 08:35] VITALS: BP 149/83
[2018-12-20 09:59] VITALS: BP 152/83
[2018-12-20 10:21] VITALS: BP 149/82
== END | disposition home or self-care (01) ==
LOC: OPS 07:15
PROVIDERS: ATTEND Internal Medicine Gastroenterology
DX: K50.818 Crohn's disease of both small and large intestine with other complication (principal); I10 Essential (primary) hypertension; K21.9 Gastro-esophageal reflux disease without esophagitis; G43.909 Migraine, unspecified, not intractable, without status migrainosus; F41.9 Anxiety disorder, unspecified; E66.01 Morbid (severe) obesity due to excess calories; F32.9 Major depressive disorder, single episode, unspecified; J45.30 Mild persistent asthma, uncomplicated; Z79.899 Other long term (current) drug therapy; Z90.49 Acquired absence of other specified parts of digestive tract; Z98.890 Other specified postprocedural states; Z90.89 Acquired absence of other organs; Z90.710 Acquired absence of both cervix and uterus
CPT/HCPCS: 96365; 96366; J1745; J7040; Q0163

== ENCOUNTER → 2019-01-14 | Outpatient (CLI) | payer OTHER ==
[2018-12-20 10:21] VITALS: BP 149/82
[~2019-01-14] MED LIST changes: -ACETAMINOPHEN 325 MG TABLET. PO ONE; -HEPARIN PF 500 UNIT/5 ML DISP.SYRIN. IV ONE; -INFLIXIMAB IV ONE; -NORMAL SALINE IV ONE; -PROG200C10 PO; +PROG200C2 PO; -diphenhydrAMINE HCL 25 MG CAPSULE PO ONE
--- NOTE | 2019-01-14 13:43 | RAD ---
Chest, 2 views, 01/14/2019: HISTORY: Acute bronchitis Comparison is made to a study from 11/22/2018. A right Port-A-Cath extends into the superior vena cava. An electronic device overlying the left mid chest remains in place with electrodes extending into the lower cervical region on the left. The heart size and pulmonary vascularity are normal. No pulmonary infiltrate is seen. There is no evidence of pleural fluid. IMPRESSION: No acute cardiopulmonary abnormality is detected. Electronically signed by: Shahid Schwartz MD (01/14/2019 1:40 PM) [facility]
== END | disposition home or self-care (01) ==
LOC: LAB 10:06
PROVIDERS: ATTEND Physician Assistant Medical
DX: J20.9 Acute bronchitis, unspecified (principal)
CPT/HCPCS: 71046

== ENCOUNTER → 2019-01-22 | Day surgery (SDC) | payer OTHER ==
[~2019-01-22] MED LIST changes: +HEPARIN PF 500 UNIT/5 ML DISP.SYRIN. IV ONE; +IV RINGERS,LACTATED 1000ML 1,000 ML IV SCH; +PROPOFOL 20 ML IV ONE; +PROPOFOL 40 ML IV ONE
[2019-01-22 08:18] VITALS: BP 107/69
[2019-01-22 09:07] LABS: U PREG PATIENT NEGATIVE (NEG)
--- NOTE | 2019-01-22 19:02 | HP ---
ADMIT DATE: 01/22/2019 REFERRING PHYSICIAN: Jose Tom PA-C. REASON FOR ADMISSION: Crohn's and Behcet's. HISTORY OF PRESENT ILLNESS: A 33-year-old female whose past medical history is significant for Behcet's/Crohn's, deep venous thrombosis, depression, anxiety. Is seen for surveillance colonoscopy. She has been maintained on Remicade with breakthrough symptoms now with the fourth and fifth week despite infusions every 6 hours. She did have diverticular disease and previous biopsy and 06/07/2018. With continued issues, she is here today for further evaluation. In addition, the patient's QuantiFERON has been borderline. ID consult is pending and switch to different biologic agent may need to be considered if additional treatments for mycobacterium was not indicated and trough levels of the drug and antibodies are elevated. PAST MEDICAL HISTORY: Behcet's/Crohn's, ovarian cyst, gastroparesis, seizures. ALLERGIES: PENICILLIN AND ASPIRIN. MEDICATIONS: Include albuterol, amlodipine, Valium, Remicade, labetalol, lorazepam, metformin, Dulera, omeprazole, Senokot, tizanidine. FAMILY AND SOCIAL HISTORY: Significant for kidney cancer with maternal grandfather. She is a nonsmoker, social drinker. PAST SURGICAL HISTORY: Status post cholecystectomy, appendectomy, tonsillectomy, vagus nerve stimulator. REVIEW OF SYSTEMS: Per records. PHYSICAL EXAMINATION: GENERAL: Reveals a well-nourished, well-developed female. VITAL SIGNS: Temperature is 98.4, pulse 67, respiration 18. HEENT: Normocephalic and atraumatic head. Pupils and extraocular movements are not tested. Sclerae anicteric. NECK: Supple. LUNGS: Clear. CARDIOVASCULAR: Reveals S1, S2 without S3, S4 or appreciable murmur. ABDOMEN: Reveals soft abdomen, normal bowel sounds without appreciable hepatosplenomegaly, diffuse tenderness. EXTREMITIES: Reveals no cyanosis, clubbing, edema. 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 Recommend surveillance endoscopy with biopsies to assess for ongoing chronic disease. Switch of biologic therapy may be needed depending on the biopsy results and potential trough drug levels and bio levels to the Remicade (infliximab). WILTON GRUBBS MD DR: JERAD/lucio JOB#: [id number] / [id number]
--- NOTE | 2019-01-23 17:09 | PATHOLOGY ---
[facility] Accession Number: [id number] . 01 Material submitted: . PART A: SIGMOID POLYP PART B: RIGHT COLON BIOPSY PART C: TRANSVERSE COLON BIOPSY PART D: LEFT COLON BIOPSY . 01 Clinical history: . Crohn's, rule out dysplasia, please refer to requisition for additional information . 02 Diagnosis: A. Sigmoid colon polypectomy: - Pedunculated tubular adenoma. . B. Right colon biopsies: - Colonic mucosa showing no evidence of active chronic colitis or dysplasia. . C. Transverse colon biopsies: - Colonic mucosa showing no evidence of active chronic colitis or dysplasia. . D. Left colon biopsies: - Colonic mucosa showing no evidence of active chronic colitis or dysplasia. (JPM:sung;01/23/2019) QMS/01/23/2019 . 02 Comment: Sections of the sigmoid colon polypectomy reveal a pedunculated tubular adenoma. There is no high-grade dysplasia or evidence of malignancy. The base of the pedicle is lined by normal colonic mucosa. . Sections of the right colon, transverse colon, and left colon biopsies appear similar and reveal multiple segments of colonic mucosa containing a few mucosal-associated lymphoid aggregates. There is no evidence of an active chronic colitis. There is no evidence of dysplasia or malignancy. (JPM:sung; 01/23/2019) . 02 Electronically signed: . Farshad Fowler MD, Pathologist NPI- [id number] . 01 Gross description: . A. Received in formalin labeled "Arianna Harmon, sigmoid polyp," is a 1.1 x 1.1 x 1.3 cm polypoid piece of boyd soft tissue. The margin is inked and the specimen is sectioned perpendicular to the margin and entirely submitted in cassette A1 and A2. . B. Received in formalin labeled "Faustino, Arianna, right colon BX," are multiple segments of boyd soft tissue measuring 1.8 x 0.5 x 0.1 cm in aggregate dimensions. The specimen is filtered and entirely submitted in cassette B1. . C. Received in formalin labeled "Arianna Harmon, transverse BX," are multiple segments of boyd soft tissue measuring 1.8 x 0.5 x 0.1 cm in aggregate dimensions. The specimen is filtered and entirely submitted in cassette C1. . D. Received in formalin labeled "Arianna Harmon, left colon BX," are multiple segments of boyd soft tissue measuring 2.1 x 0.5 x 0.1 cm in aggregate dimensions. The specimen is filtered and entirely submitted in cassette D1. (TSD; 01/22/2019) TOB/TOB . 02 Microscopic: . . . 02 Pathologist provided ICD-10: D12.5, K50.90 . 02 CPT . 362145, 990124, 960398, 514803 Specimen Comment: A courtesy copy of this report has been sent to Specimen Comment: [phone], . Specimen Comment: Report sent to / DR SINGER Specimen Comment: A duplicate report has been generated due to demographic updates. Performed at: 01 [facility] [address], [place], [place] [id number] MD Osiel Lyons MD Phone: [phone] Performed at: [address] [id number] MD Farshad Fowler MD Phone: [phone]
== END | disposition home or self-care (01) ==
LOC: ENDOS 06:02
PROVIDERS: ATTEND Internal Medicine Gastroenterology
DX: D12.5 Benign neoplasm of sigmoid colon (principal); K57.30 Diverticulosis of large intestine without perforation or abscess without bleeding; K64.0 First degree hemorrhoids; K50.80 Crohn's disease of both small and large intestine without complications; Z88.0 Allergy status to penicillin; Z88.1 Allergy status to other antibiotic agents; Z88.6 Allergy status to analgesic agent; Z88.8 Allergy status to other drugs, medicaments and biological substances; F32.9 Major depressive disorder, single episode, unspecified; Z86.718 Personal history of other venous thrombosis and embolism; F41.9 Anxiety disorder, unspecified; K31.84 Gastroparesis; Z79.84 Long term (current) use of oral hypoglycemic drugs; Z79.899 Other long term (current) drug therapy; Z72.89 Other problems related to lifestyle; Z90.49 Acquired absence of other specified parts of digestive tract; Z98.890 Other specified postprocedural states
CPT/HCPCS: 45380; 45385; 81025; 88305; J2704

== ENCOUNTER → 2019-02-17 | Outpatient (CLI) | payer OTHER ==
[2019-01-22 08:18] VITALS: BP 107/69
[~2019-02-17] MED LIST changes: -HEPARIN PF 500 UNIT/5 ML DISP.SYRIN. IV ONE; -IV RINGERS,LACTATED 1000ML 1,000 ML IV SCH; -PROPOFOL 20 ML IV ONE; -PROPOFOL 40 ML IV ONE
== END | disposition home or self-care (01) ==
LOC: LAB 06:03
PROVIDERS: ATTEND Internal Medicine Infectious Disease
DX: R76.12 Nonspecific reaction to cell mediated immunity measurement of gamma interferon antigen response without active tuberculosis (principal)
CPT/HCPCS: 36415; 86481

== ENCOUNTER → 2019-03-10 | Outpatient (CLI) | payer OTHER ==
[~2019-03-10] VITALS: Ht 188 cm; Wt 216.4 kg
[~2019-03-10] MED LIST changes: +ACETAMINOPHEN 325 MG TABLET. PO ONE; +HEPARIN PF 500 UNIT/5 ML DISP.SYRIN. IV ONE; +INFLIXIMAB IV ONE; +NORMAL SALINE IV ONE; +diphenhydrAMINE HCL 25 MG CAPSULE PO ONE
[2019-03-10 07:41] VITALS: BP 168/81
== END | disposition home or self-care (01) ==
LOC: OPS 07:26
PROVIDERS: ATTEND Internal Medicine Gastroenterology
DX: K50.818 Crohn's disease of both small and large intestine with other complication (principal); F41.9 Anxiety disorder, unspecified; F32.9 Major depressive disorder, single episode, unspecified; Z79.84 Long term (current) use of oral hypoglycemic drugs; Z79.899 Other long term (current) drug therapy; Z98.890 Other specified postprocedural states; Z86.718 Personal history of other venous thrombosis and embolism; Z90.49 Acquired absence of other specified parts of digestive tract; Z86.018 Personal history of other benign neoplasm
CPT/HCPCS: 96365; 96366; J1745; J7040; Q0163

== ENCOUNTER 2019-06-21 06:12 | Emergency (ER) | payer OTHER ==
[~2019-06-21] VITALS: Ht 188 cm; Wt 217.3 kg
[~2019-06-21 06:12] MED LIST changes: -ACETAMINOPHEN 325 MG TABLET. PO ONE; -HEPARIN PF 500 UNIT/5 ML DISP.SYRIN. IV ONE; -INFLIXIMAB IV ONE; -NORMAL SALINE IV ONE; +PROG200C10 PO; -PROG200C2 PO; -diphenhydrAMINE HCL 25 MG CAPSULE PO ONE
--- NOTE | 2019-06-21 06:32 | PHYS DOC ---
Past Medical History Past Medical History: Hypertension, Migraines, Seizure Additional Past Medical Histor: VNS-UPPER LEFT CHEST,BECHETS,OBESITY, PCOS,EPILEPSY Past Surgical History: Appendectomy, Cholecystectomy Additional Past Surgical Histo: PORT RIGHT CHEST,RIGHT KNEE, SPENCER FILTER, VNS Alcohol Use: Occasionally Drug Use: None Adult General Chief Complaint Chief Complaint: HEADACHE HPI HPI 34-year-old female presenting to the emergency department today with a headache. She has a history of migraines. She describes this as similar to her previous migraines. It is a throbbing headache since Sunday. Comes and goes. She is tried [id number]-[id number] medications with minimal relief. She has been unable to sleep over the past few days. Review of systems is negative for neck stiffness fevers chills chest pain shortness breath abdominal pain vomiting. She denies any loss of vision. All other review of systems is negative. ED course: 34-year-old female presenting the emergency department today with a headache similar to previous headaches. Headache improved in the ED with therapy. We will d/c her today to f/u with pcp. I do recommend she have investigation by her pcp in outpt for BIIH with lumbar puncture given her weight. The patient has been examined and was not found to have an emergency med ical condition. The patient was then discharged home in stable condition to follow up with their primary care physician over the next 1-2 days. They were to return if their symptoms worsened or if they were concerned for any reason. They were also instructed to return to the emergency department if they were unable to get the recommended and appropriate follow-up. [id number] discharge instructions and return precautions were given. Patient's questions were answered to their satisfaction. Patient is comfortable with plan. Current Medications Current Medications Current Medications Medications (Trade) Dose Ordered Sig/Munira Start Time Stop Time Status Last Admin Dose Admin Dexamethasone Sodium Phosphate (Decadron) 10 mg 1X ONCE 06/21/19 06:45 06/21/19 06:46 DC 06/21/19 06:55 10 MG Diphenhydramine HCl (Benadryl) 25 mg 1X ONCE 06/21/19 08:15 06/21/19 08:16 06/21/19 07:51 25 MG Ketorolac Tromethamine (Toradol 15mg Vial) 15 mg 1X ONCE 06/21/19 08:15 06/21/19 08:16 06/21/19 07:51 15 MG Metoclopramide HCl (Reglan Vial) 10 mg 1X ONCE 06/21/19 08:15 06/21/19 08:16 06/21/19 07:51 10 MG Metoclopramide HCl (Reglan) 10 mg 1X ONCE 06/21/19 06:45 06/21/19 06:46 DC 06/21/19 06:56 10 MG Sodium Chloride 1,000 ml @ 1,000 mls/hr 1X ONCE 06/21/19 07:15 06/21/19 08:14 DC Allergies Allergies Allergies Coded Allergies Type Severity Reaction Last Updated Verified Penicillins Allergy Intermediate Swellingand hives 06/12/19 Yes amoxicillin Allergy Intermediate Swelling and hives 06/12/19 Yes aspirin Allergy Intermediate Hives, OK with premed 06/12/19 Yes iodine Allergy Intermediate Hives iv contrast dye 06/12/19 Yes Physical Exam Physical Exam Constitutional: Well developed, well nourished, no acute distress, non-toxic appearance. [] HENT: Normocephalic, atraumatic, bilateral external ears normal, oropharynx moist, no oral exudates, nose normal. [] Eyes: PERRLA, EOMI, conjunctiva normal, no discharge. [] Neck: Normal range of motion, no tenderness, supple, no stridor. [] neg brudinsk ys. neg kurnigs. Cardiovascular:Heart rate regular rhythm, no murmur [] Lungs & Thorax: Bilateral breath sounds clear to auscultation [] Abdomen: Bowel sounds normal, soft, no tenderness, no masses, no pulsatile masses. [] Skin: Warm, dry, no erythema, no rash. [] Back: No tenderness, no CVA tenderness. [] Extremities: No tenderness, no cyanosis, no clubbing, ROM intact, no edema. [] Neurologic: Mental status: Awake oriented and alert x3 Cranial nerves: Extraocular movements intact, eyebrows kaur bilaterally, smile symmetric, uvula elevation nl, shoulder shrug intact bilaterally, tongue protrusion normal DTRs: 2+ Sensation: equal and normal in all extremities Strength: 5/5 in upper and lower extremities bilaterally Psychologic: Affect normal, judgement normal, mood normal. [] Current Patient Data Vital Signs Vital Signs Date Time Temp Pulse Resp B/P (MAP) Pulse Ox O2 Delivery O2 Flow Rate FiO2 06/21/19 07:44 88 18 06/21/19 06:15 98.6 181/115 (137) 98 Room Air 98.6 Lab Values Laboratory Tests Test 06/21/19 06:23 POC Urine HCG, Qualitative Hcg negative (Negative) EKG EKG [] Radiology/Procedures Radiology/Procedures [] Course & Med Decision Making Course & Med Decision Making Pertinent Labs and Imaging studies reviewed. (See chart for details) [] Dragon Disclaimer Dragon Disclaimer This electronic medical record was generated, in whole or in part, using a voice recognition dictation system. Departure Departure Impression: Primary Impression: Migraine headache Disposition: HOME, SELF-CARE Condition: STABLE Referrals: KEDAR SINGER PA-C (PCP) Patient Instructions: Migraine Headache Additional Instructions: Thank you for allowing us to participate in your care today. Return to the emergency department you have any new or worsening symptoms, or if you are concerned for any reason. Return to emergency department if you have any new or concerning symptoms including but not limited to fever, chills, nausea, vomiting, intractable pain, any new rashes, chest pain, shortness of air, uncontrolled bleeding, difficulty breathing, and/or vision loss. Follow up with your primary care physician within 1-2 days. Call your Primary Doctor tomorrow and inform them of your visit today. If you do not have a primary care provider we are happy to provide you with a list of our primary care providers contact information. This condition should be evaluated by your primary care physician and any recommended consulting services for continued management within 2 days after discharge. If at any time, you are having difficulty getting into your primary care doctor or a specialist, return to the emergency department. LONG SAMUEL MD Jun 21, 2019 06:32
[2019-06-21] MEDS ORDERED: diphenhydrAMINE 50 MG/ML VIAL IVP ONE ×2 (06:45→08:15)
[2019-06-21] MEDS ORDERED: METOCLOPRAMIDE 10 MG TABLET. PO ONE (06:45)
[2019-06-21] MEDS ORDERED: DEXAMETHASONE SOD PHOS 20 MG/5 ML VIAL. IV ONE (06:45)
[2019-06-21] MEDS ORDERED: IV NORMAL SALINE 1000ML BAG 1,000 ML IV ONE ×2 (06:45→07:15)
[2019-06-21] MEDS ORDERED: KETOROLAC 15 MG/ML VIAL. IV ONE (08:15)
[2019-06-21] MEDS ORDERED: METOCLOPRAMIDE HCL 10 MG/2 ML VIAL. IV ONE (08:15)
[2019-06-21 09:00] VITALS: BP 151/83
[2019-06-21] MEDS ORDERED: HEPARIN for IV BOLUS 10,000 UNIT/10 ML VIAL. ONE (09:00)
== END 2019-06-21 09:05 | disposition home or self-care (01) ==
LOC: ER 06:12
DX: G43.909 Migraine, unspecified, not intractable, without status migrainosus (principal); I10 Essential (primary) hypertension; G40.909 Epilepsy, unspecified, not intractable, without status epilepticus; E66.9 Obesity, unspecified; Z68.44 Body mass index [BMI] 60.0-69.9, adult; Z88.0 Allergy status to penicillin; Z88.1 Allergy status to other antibiotic agents; Z88.6 Allergy status to analgesic agent; Z88.8 Allergy status to other drugs, medicaments and biological substances
CPT/HCPCS: 81025; 96374; 96375; 96376; 99285; J1100; J1200; J1885; J2765; J7030; J8597

== ENCOUNTER → 2019-06-30 | Outpatient (CLI) | payer OTHER ==
[2019-06-21 09:00] VITALS: BP 151/83
[2019-06-30 23:00] LABS: BASO % 0 % (0-3); EOS # 0.4 x10^3/uL (0.0-0.7); EOS % 3 % (0-3); HEMATOCRIT 38.2 % (36.0-47.0); HEMOGLOBIN 12.4 g/dL (12.0-15.5); LYMPH # 1.5 x10^3/uL (1.0-4.8); LYMPH % 13 % (24-48); MEAN CORPUSCULAR HEMOGLOBIN 26 pg (25-35); MEAN CORPUSCULAR HGB CONC 33 g/dL (31-37); MEAN CORPUSCULAR VOLUME 81 fL (79-100); MONO # 0.7 x10^3/uL (0.0-1.1); MONO % 6 % (0-9); NEUT # 9.1 x10^3/uL (1.8-7.7); NEUT % 78 % (31-73); PLATELET COUNT 181 x10^3/uL (140-400); RED BLOOD COUNT 4.74 x10^6/uL (3.50-5.40); RED CELL DISTRIBUTION WIDTH 15.6 % (11.5-14.5); WHITE BLOOD COUNT 11.7 x10^3/uL (4.0-11.0)
[2019-06-30 23:20] LABS: % BANDS 16 % (0-9); % EOS 1 % (0-5); % LYMPHS 12 % (24-48); % MONOS 4 % (0-10); % MYELOS 5 % (0-0); % SEGS 62 % (35-66); PLT ESTIMATE ADEQUATE (ADEQUATE)
[2019-06-30 23:38] LABS: ALBUMIN 3.4 g/dL (3.4-5.0); ALBUMIN/GLOBULIN RATIO 0.9 (1.0-1.7); CREATININE 0.8 mg/dL (0.6-1.0); GFR 83.1; POTASSIUM 3.8 mmol/L (3.5-5.1); TOTAL BILIRUBIN 0.3 mg/dL (0.2-1.0)
[2019-06-30 23:39] LABS: PREG TEST PT QUAL NEGATIVE (NEG)
== END | disposition home or self-care (01) ==
LOC: SPEC 22:53
PROVIDERS: ATTEND Physician Assistant Medical
DX: M35.2 Behcet's disease (principal); G40.909 Epilepsy, unspecified, not intractable, without status epilepticus; N91.2 Amenorrhea, unspecified
CPT/HCPCS: 36415; 80053; 84703; 85007; 85025

== ENCOUNTER → 2019-07-14 | Outpatient (CLI) | payer OTHER ==
[2019-06-21 09:00] VITALS: BP 151/83
[2019-07-15 17:09] LABS: FSH 4.9 mIU/mL (.); LUTEINIZING HORMONE 5.3 mIU/mL (.); PROGESTERONE <0.1 ng/mL (.); TESTOSTERONE TOTAL 3 ng/dL (8-48)
== END | disposition home or self-care (01) ==
LOC: SPEC 20:24
PROVIDERS: ATTEND Physician Assistant Medical
DX: E28.2 Polycystic ovarian syndrome (principal); N91.2 Amenorrhea, unspecified
CPT/HCPCS: 36415; 82679; 83001; 83002; 84144; 84403

== ENCOUNTER → 2019-07-22 | Outpatient (CLI) | payer OTHER ==
[2019-07-22 08:08] LABS: BASO % 0 % (0-3); EOS # 0.5 x10^3/uL (0.0-0.7); EOS % 6 % (0-3); HEMOGLOBIN 11.8 g/dL (12.0-15.5); LYMPH # 1.4 x10^3/uL (1.0-4.8); LYMPH % 15 % (24-48); MEAN CORPUSCULAR HEMOGLOBIN 27 pg (25-35); MEAN CORPUSCULAR HGB CONC 34 g/dL (31-37); MEAN CORPUSCULAR VOLUME 81 fL (79-100); MONO # 0.6 x10^3/uL (0.0-1.1); MONO % 7 % (0-9); NEUT # 6.6 x10^3/uL (1.8-7.7); NEUT % 72 % (31-73); PLATELET COUNT 140 x10^3/uL (140-400); RED BLOOD COUNT 4.34 x10^6/uL (3.50-5.40); RED CELL DISTRIBUTION WIDTH 15.8 % (11.5-14.5); WHITE BLOOD COUNT 9.2 x10^3/uL (4.0-11.0)
[2019-07-22 08:29] LABS: ALBUMIN 3.4 g/dL (3.4-5.0); CALCIUM 8.9 mg/dL (8.5-10.1); CREATININE 0.8 mg/dL (0.6-1.0); GFR 83.1; POTASSIUM 3.5 mmol/L (3.5-5.1); TOTAL BILIRUBIN 0.5 mg/dL (0.2-1.0); TOTAL PROTEIN 6.8 g/dL (6.4-8.2)
== END | disposition home or self-care (01) ==
LOC: LAB 07:05
PROVIDERS: ATTEND Psychiatry & Neurology Neurology
DX: G40.219 Localization-related (focal) (partial) symptomatic epilepsy and epileptic syndromes with complex partial seizures, intractable, without status epilepticus (principal); Z96.89 Presence of other specified functional implants
CPT/HCPCS: 36415; 80053; 85025

== ENCOUNTER → 2019-08-13 | Outpatient (CLI) | payer OTHER ==
[2019-07-22 07:24] VITALS: BP 147/89
[2019-08-14 11:12] LABS: FSH 3.5 mIU/mL (.); LUTEINIZING HORMONE 5.5 mIU/mL (.); PROGESTERONE <0.1 ng/mL (.); TESTOSTERONE TOTAL 14 ng/dL (8-48)
== END | disposition home or self-care (01) ==
LOC: SPEC 21:29
PROVIDERS: ATTEND Physician Assistant Medical
DX: E28.2 Polycystic ovarian syndrome (principal)
CPT/HCPCS: 36415; 82679; 83001; 83002; 84144; 84403

== ENCOUNTER → 2020-03-15 | Outpatient (CLI) | payer OTHER ==
[2019-09-30 08:36] VITALS: BP 177/94
[~2020-03-15] MED LIST changes: -LAMO150T2 PO; +LAMO150T4 PO; -LAMO200T2 PO; +LAMO200T6 PO; +OMEP40CA45 PO; -OMEP40CA5 PO; +TRAZ-123 PO; -TRAZ-86 PO
--- NOTE | 2020-03-15 12:16 | RAD ---
CHEST PA LATERAL History: Bilateral upper respiratory infection Comparison: 01/14/2019 two-view chest x-ray exam. Findings: Frontal and lateral views of the chest were obtained. A right-sided infusion port catheter again is seen. Stimulator device at the left lower thoracic level has associated grade extending to the base of the left neck. The cardiomediastinal silhouette is normal. Pulmonary vasculature is normal. The lungs are clear. Clustering angles were not fully included. No significant pleural effusion or pneumothorax is seen. There is no acute bone abnormality. IMPRESSION: No acute cardiopulmonary process. Electronically signed by: Maxim Kennedy MD (03/15/2020 12:13 PM) [id number]
== END | disposition home or self-care (01) ==
LOC: RAD 11:16
PROVIDERS: ATTEND Physician Assistant Medical
DX: J06.9 Acute upper respiratory infection, unspecified (principal)
CPT/HCPCS: 71046

== ENCOUNTER 2020-04-08 08:37 | Outpatient (CLI) | payer OTHER ==
[2020-04-08] VITALS (11 sets, daily range): BP systolic 113–197; BP diastolic 63–94
[~2020-04-08] VITALS: Ht 188 cm; Wt 202.3 kg
[2020-04-08] MEDS ORDERED: HYDROcodone/APAP 7.5/325MG 1 TAB TABLET PO ONE (09:45)
[2020-04-08 09:47] LABS: BASO % 0 % (0-3); EOS # 0.5 x10^3/uL (0.0-0.7); EOS % 6 % (0-3); HEMATOCRIT 32.7 % (36.0-47.0); HEMOGLOBIN 10.4 g/dL (12.0-15.5); LYMPH # 1.2 x10^3/uL (1.0-4.8); LYMPH % 14 % (24-48); MEAN CORPUSCULAR HEMOGLOBIN 25 pg (25-35); MEAN CORPUSCULAR HGB CONC 32 g/dL (31-37); MEAN CORPUSCULAR VOLUME 77 fL (79-100); MONO # 0.5 x10^3/uL (0.0-1.1); MONO % 6 % (0-9); NEUT # 5.8 x10^3/uL (1.8-7.7); NEUT % 73 % (31-73); PLATELET COUNT 157 x10^3/uL (140-400); RED BLOOD COUNT 4.23 x10^6/uL (3.50-5.40); RED CELL DISTRIBUTION WIDTH 17.2 % (11.5-14.5)
[2020-04-08 09:55] LABS: PROTHROMBIN TIME PATIENT 12.3 SEC (11.7-14.0)
[2020-04-08] MEDS ORDERED: LIDOCAINE WITH 8.4% SOD BICARB 3 ML DISP.SYRIN. ONE (10:45)
[2020-04-08] MEDS ORDERED: MIDAZOLAM HCL/PF 5 MG/5 ML VIAL. ONE (10:45)
[2020-04-08] MEDS ORDERED: NALOXONE 0.4 MG/ML VIAL. ONE (10:46)
[2020-04-08] MEDS ORDERED: FLUMAZENIL 0.5 MG/5 ML VIAL. IV ONE (10:46)
[2020-04-08] MEDS ORDERED: fentaNYL PF VIAL 250 MCG/5 ML VIAL ONE (10:46)
[2020-04-08] MEDS ORDERED: fentaNYL PF VIAL 250 MCG/5 ML VIAL IV ONE (11:30)
[2020-04-08] MEDS ORDERED: MIDAZOLAM HCL/PF 5 MG/5 ML VIAL. IV ONE (11:30)
[2020-04-08] MEDS ORDERED: LIDOCAINE WITH 8.4% SOD BICARB 3 ML DISP.SYRIN. IJ ONE (11:30)
[2020-04-08] MEDS ORDERED: DIPH1TAB PO (11:40)
[2020-04-08] MEDS ORDERED: METH250T3 PO (11:40)
[2020-04-08] MEDS ORDERED: GABA300C18 PO (11:40)
[2020-04-08] MEDS ORDERED: HYDR-2763 PO (11:40)
--- NOTE | 2020-04-08 12:58 | NUR ---
pt A&O x4. tolerating po well. ambulated w/o problem. dressing on left sacral site has small amount(dime sized) old drainage on it. VSS. d/c instructions given, questions answered. out to vehicle per w/c- her to drive her home
--- NOTE | 2020-04-08 14:02 | RAD ---
CT-guided bone marrow biopsy. 04/08/2020 11:59 AM Indication: ANEMIA Discussion: The risks and benefits of the procedure, including but not limited to, bleeding and infection were discussed patient. Informed consent was obtained. The patient was brought to the CT scanner and placed in the prone position. A timeout procedure was performed. Brick Carrier CT imaging of the pelvis demonstrated left ilium amenable to bone marrow biopsy. The overlying soft tissues were prepped and draped using maximum sterile barrier technique. 1% lidocaine without epinephrine was administered for local anesthesia. Under intermittent CT guidance, an OncControl needle was advanced into the bone marrow of the left iliac crest. 2 Aspirates and 1 core biopsy samples were obtained. Samples were delivered to pathology was present at the time of procedure. The needle was removed and manual pressure held to achieve hemostasis. No immediate complications were identified. The procedure was performed under conscious sedation including continuous cardiopulmonary monitoring via dedicated sedation nurse. Sedation time: 20 minutes Impression: Successful CT-guided bone marrow biopsy of the left iliac crest . PQRS Compliance Statement: One or more of the following individualized dose reduction techniques were utilized for this examination: 1. Automated exposure control 2. Adjustment of the mA and/or kV according to patient size 3. Use of iterative reconstruction technique
== END 2020-04-08 12:45 | disposition home or self-care (01) ==
LOC: INTRAD 08:37
PROVIDERS: ATTEND Internal Medicine Hematology & Oncology
DX: D64.9 Anemia, unspecified (principal); Z79.01 Long term (current) use of anticoagulants
CPT/HCPCS: 36415; 38222; 77012; 85025; 85610; 88184; 88185; 88237; 99152; J2250; J3010; J3490

== ENCOUNTER 2020-11-04 06:17 | Emergency (ER) | payer OTHER ==
[~2020-11-04] VITALS: Ht 188 cm; Wt 216.1 kg
[~2020-11-04 06:17] MED LIST changes: +AMLO-187 PO; -AMLO10TA8 PO; +DIPH1TAB PO; +ERYT250C33 PO; -ERYT250C8 PO; +GABA300C18 PO; +HYDR-2763 PO
--- NOTE | 2020-11-04 06:59 | ED.ADGEN ---
Past Medical History Past Medical History: Hypertension, Migraines, Seizure Additional Past Medical Histor: VNS-UPPER LEFT CHEST,BECHETS,OBESITY, PCOS,EPILEPSY, INTRACRANIAL HTN Past Surgical History: Appendectomy, Cholecystectomy Additional Past Surgical Histo: PORT RIGHT CHEST,RIGHT KNEE, SPENCER FILTER, VNS, LP SHUNT Smoking Status: Never Smoker Alcohol Use: None Drug Use: None General Adult EDM: Chief Complaint: HEADACHE HPI: HPI: Patient is a morbidly obese female who arrives ambulatory to the emergency department complaining of the abrupt onset of a headache just prior to arrival. Patient reports she was getting up to go to the bathroom when she noticed the onset of a frontal headache as well as clear fluid leaking from the left nostr il. Patient is concerned that this may be cerebral spinal fluid. Patient reports she did have a shunt placed for her given history of intracranial hypertension in May of this year. Patient reports this is never happened before although she does have an extensive history of fevers with sinus comp lications as well as a seizure disorder. The patient states the fluid was consistent with that of water/tear-like consistency. The patient states this is the worst headache she is ever experienced. She denies fevers or neck involvement. She further denies any chest pain, rash or neurological change otherwise. She is awake, alert and uncomfortable appearing. Review of Systems: Review of Systems: Constitutional: Denies fever or chills. [] Eyes: Denies change in visual acuity. [] HENT: Reports clear nasal drainage. Denies nasal congestion or sore throat. [] Respiratory: Denies cough or shortness of breath. [] Cardiovascular: Denies chest pain or edema. [] GI: Reports nausea. Denies abdominal pain, vomiting, bloody stools or diarrhea. [] : Denies dysuria. [] Musculoskeletal: Denies back pain or joint pain. [] Integument: Denies rash. [] Neurologic: Reports headache. Focal weakness or sensory changes. [] Endocrine: Denies polyuria or polydipsia. [] Lymphatic: Denies swollen glands. [] Psychiatric: Denies depression or anxiety. [] Family History: Family History: Noncontributory Current Medications: Current Medications Medications (Trade) Dose Ordered Sig/Munira Start Time Stop Time Status Last Admin Dose Admin Diphenhydramine HCl (Benadryl) 50 mg 1X ONCE 11/04/20 07:00 11/04/20 07:01 DC 11/04/20 07:46 50 MG Heparin Sodium (Porcine) (Hep Lock Adult) 500 unit 1X ONCE 11/04/20 10:30 11/04/20 10:31 DC Metoclopramide HCl (Reglan Vial) 10 mg 1X ONCE 11/04/20 07:00 11/04/20 07:01 DC 11/04/20 07:46 10 MG Ondansetron HCl (Zofran) 4 mg 1X ONCE 11/04/20 09:30 11/04/20 09:31 DC 11/04/20 09:34 4 MG Sodium Chloride 1,000 ml @ 1,000 mls/hr 1X ONCE 11/04/20 07:00 11/04/20 07:59 DC 11/04/20 07:47 1,000 MLS/HR Allergies: Allergies: Allergies Coded Allergies Type Severity Reaction Last Updated Verified Penicillins Allergy Intermediate Swellingand hives 09/30/19 Yes amoxicillin Allergy Intermediate Swelling and hives 09/30/19 Yes aspirin Allergy Intermediate Hives, OK with premed 09/30/19 Yes iodine Allergy Intermediate Hives iv contrast dye 09/30/19 Yes Physical Exam: PE: Constitutional: Morbidly obese and uncomfortable appearing. Well developed, well nourished, no acute distress, non-toxic appearance. [] HENT: Normocephalic, atraumatic, bilateral external ears normal, oropharynx moist, no oral exudates, nose normal. [] Eyes: PERRLA, EOMI, conjunctiva normal, no discharge. [] Neck: Normal range of motion, no tenderness, supple, no stridor. [] Cardiovascular:Heart rate regular rhythm, no murmur [] Lungs & Thorax: Bilateral breath sounds clear to auscultation [] Abdomen: Bowel sounds normal, soft, no tenderness, no masses, no pulsatile mass es. [] Skin: Warm, dry, no erythema, no rash. [] Back: No tenderness, no CVA tenderness. [] Extremities: No tenderness, no cyanosis, no clubbing, ROM intact, no edema. [] Neurologic: Alert and oriented X 3, normal motor function, normal sensory function, no focal deficits noted. [] Psychologic: Affect normal, judgement normal, mood normal. [] Current Patient Data: Labs: Laboratory Tests Test 11/04/20 07:35 11/04/20 07:38 11/04/20 07:39 White Blood Count 10.3 x10^3/uL (4.0-11.0) Red Blood Count 4.76 x10^6/uL (3.50-5.40) Hemoglobin 11.5 g/dL (12.0-15.5) L Hematocrit 35.9 % (36.0-47.0) L Mean Corpuscular Volume 76 fL (79-100) L Mean Corpuscular Hemoglobin 24 pg (25-35) L Mean Corpuscular Hemoglobin Concent 32 g/dL (31-37) Red Cell Distribution Width 18.4 % (11.5-14.5) H Platelet Count 165 x10^3/uL (140-400) Neutrophils (%) (Auto) 82 % (31-73) H Lymphocytes (%) (Auto) 11 % (24-48) L Monocytes (%) (Auto) 5 % (0-9) Eosinophils (%) (Auto) 2 % (0-3) Basophils (%) (Auto) 1 % (0-3) Neutrophils # (Auto) 8.4 x10^3/uL (1.8-7.7) H Lymphocytes # (Auto) 1.1 x10^3/uL (1.0-4.8) Monocytes # (Auto) 0.5 x10^3/uL (0.0-1.1) Eosinophils # (Auto) 0.2 x10^3/uL (0.0-0.7) Basophils # (Auto) 0.1 x10^3/uL (0.0-0.2) Segmented Neutrophils % 79 % (35-66) H Band Neutrophils % 1 % (0-9) Lymphocytes % 11 % (24-48) L Monocytes % 7 % (0-10) Eosinophils % 2 % (0-5) Platelet Estimate Adequate (ADEQUATE) Large Platelets Occ Hypochromasia Slight Anisocytosis Slight Sodium Level 142 mmol/L (136-145) Potassium Level 3.8 mmol/L (3.5-5.1) Chloride Level 105 mmol/L (98-107) Carbon Dioxide Level 27 mmol/L (21-32) Anion Gap 10 (6-14) Blood Urea Nitrogen 11 mg/dL (7-20) Creatinine 0.9 mg/dL (0.6-1.0) Estimated GFR (Cockcroft-Gault) 72.1 BUN/Creatinine Ratio 12 (6-20) Glucose Level 96 mg/dL (70-99) Calcium Level 8.5 mg/dL (8.5-10.1) Total Bilirubin 0.3 mg/dL (0.2-1.0) Aspartate Amino Transferase (AST) 13 U/L (15-37) L Alanine Aminotransferase (ALT) 26 U/L (14-59) Alkaline Phosphatase 76 U/L (46-116) Total Protein 6.7 g/dL (6.4-8.2) Albumin 3.3 g/dL (3.4-5.0) L Albumin/Globulin Ratio 1.0 (1.0-1.7) POC Urine HCG, Qualitative Hcg negative (Negative) Urine Collection Type Unknown Urine Color Yellow Urine Clarity Clear Urine pH 7.0 (<5.0-8.0) Urine Specific [place] 1.020 (1.000-1.030) Urine Protein Negative mg/dL (NEG-TRACE) Urine Glucose (UA) Negative mg/dL (NEG) Urine Ketones (Stick) Negative mg/dL (NEG) Urine Blood Negative (NEG) Urine Nitrite Negative (NEG) Urine Bilirubin Negative (NEG) Urine Urobilinogen Dipstick 0.2 mg/dL (0.2 mg/dL) Urine Leukocyte Esterase Small (NEG) Urine RBC 0 /HPF (0-2) Urine WBC 0 /HPF (0-4) Urine Squamous Epithelial Cells Mod /LPF Urine Bacteria Few /HPF (0-FEW) Urine Mucus Slight /LPF Laboratory Tests 11/04/20 07:35 Laboratory Tests 11/04/20 07:35 Vital Signs: Vital Signs Date Time Temp Pulse Resp B/P (MAP) Pulse Ox O2 Delivery O2 Flow Rate FiO2 11/04/20 09:52 79 95 11/04/20 06:32 98.4 20 159/91 (113) Room Air 98.4 EKG: EKG: [] Heart Score: Risk Factors: Risk Factors: DM, Current or recent (<one month) smoker, HTN, HLP, family his tory of CAD, obesity. Risk Scores: Score 0 - 3: 2.5% MACE over next 6 weeks - Discharge Home Score 4 - 6: 20.3% MACE over next 6 weeks - Admit for Clinical Observation Score 7 - 10: 72.7% MACE over next 6 weeks - Early Invasive Strategies Radiology/Procedures: Radiology/Procedures: [][facility] [address] [place] [address] IMAGING REPORT Signed PATIENT: RENA WHEELER ACCOUNT: [id number] : 1985 LOCATION: ER AGE: 35 SEX: F EXAM STATUS: REG ER ORD. PHYSICIAN: RANULFO VELASQUEZ DO REASON: [id number] CSF LEAK PROCEDURE: CT HEAD WO CONTRAST EXAM: CT head without contrast INDICATION: Headache, shunt, possible CSF leak COMPARISON: CT head 11/27/2018 TECHNIQUE: Axial CT imaging through the head without intravenous contrast. One or more of the following individualized dose reduction techniques were utilized for this examination: 1. Automated exposure control 2. Adjustment of the mA and/or kV according to patient size 3. Use of iterative reconstruction technique. FINDINGS: The ventricles and sulci are normal. Campo-white matter differentiation is maintained. There is no intracranial hemorrhage, or acute infarct. 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 Basal cisterns are clear. The skull and scalp are intact. Paranasal sinuses and mastoid air cells are clear. Globes and orbits are intact.. IMPRESSION: No acute intracranial abnormality. Electronically signed by: Aliza Buck MD (11/04/2020 8:24 AM) [id number] DICTATED and SIGNED BY: ALIZA BUCK MD DATE: 11/04/20 [id number] 0 Course & Med Decision Making: Course & Med Decision Making Pertinent Labs and Imaging studies reviewed. (See chart for details) [] The patient remains awake, alert and in no acute distress. Specifically she is neurologically intact and denies any vision changes. Patient does report that she has some relief from her headache however it still present. I did speak with neurosurgery on-call and they advised patient may be discharged with close follow-up with her surgeon for further evaluation of this CSF leak. The patient understands states she will contact her neurosurgeon upon discharge. Should she develop any fevers, worsening headaches or any new neurological changes have advised her to return. The patient understands and has agreed to do so. She is nontoxic-appearing and resting comfortably. She stable for discharge. Naomi Disclaimer: Naomi Disclaimer: This electronic medical record was generated, in whole or in part, using a voice recognition dictation system. Departure Departure Impression: Primary Impression: Cephalgia Additional Impression: Shunt malfunction Disposition: 01 DC HOME SELF CARE/HOMELESS Condition: STABLE Referrals: KEDAR SINGER PA-C (PCP) Patient Instructions: General Headache Without Cause Scripts Hydrocodone/Apap 5-325 (NORCO 5-325 TABLET) 1 Each Tablet 1 TAB PO PRN Q6HRS PRN for PAIN for 3 Days, #12 TAB 0 Refills Prov: RANULFO VELASQUEZ DO 11/04/20 Problem Qualifiers RANULFO VELASQUEZ DO Nov 04, 2020 06:59
[2020-11-04 07:45] LABS: BASO # 0.1 x10^3/uL (0.0-0.2); BASO % 1 % (0-3); EOS # 0.2 x10^3/uL (0.0-0.7); EOS % 2 % (0-3); HEMATOCRIT 35.9 % (36.0-47.0); HEMOGLOBIN 11.5 g/dL (12.0-15.5); LYMPH # 1.1 x10^3/uL (1.0-4.8); LYMPH % 11 % (24-48); MEAN CORPUSCULAR HEMOGLOBIN 24 pg (25-35); MEAN CORPUSCULAR HGB CONC 32 g/dL (31-37); MEAN CORPUSCULAR VOLUME 76 fL (79-100); MONO # 0.5 x10^3/uL (0.0-1.1); MONO % 5 % (0-9); NEUT # 8.4 x10^3/uL (1.8-7.7); NEUT % 82 % (31-73); PLATELET COUNT 165 x10^3/uL (140-400); RED BLOOD COUNT 4.76 x10^6/uL (3.50-5.40); RED CELL DISTRIBUTION WIDTH 18.4 % (11.5-14.5); WHITE BLOOD COUNT 10.3 x10^3/uL (4.0-11.0)
[2020-11-04] MEDS: METOCLOPRAMIDE HCL 10 MG/2 ML VIAL. IVP ONE (07:46)
[2020-11-04] MEDS: diphenhydrAMINE 50 MG/ML VIAL IVP ONE (07:46)
[2020-11-04] MEDS: IV NORMAL SALINE 1000ML BAG 1,000 ML IV ONE (07:47)
[2020-11-04 08:00] LABS: CALCIUM 8.5 mg/dL (8.5-10.1); CREATININE 0.9 mg/dL (0.6-1.0); GFR 72.1; POTASSIUM 3.8 mmol/L (3.5-5.1)
[2020-11-04 08:01] LABS: BILIRUBIN,URINE NEGATIVE (NEG); CLARITY,URINE CLEAR; COLOR,URINE YELLOW; NITRITE,URINE NEGATIVE (NEG); PROTEIN,URINE NEGATIVE (NEG-TRACE); UROBILINOGEN,URINE 0.2 mg/dL (0.2 mg/dL)
[2020-11-04 08:05] LABS: ALBUMIN 3.3 g/dL (3.4-5.0); TOTAL BILIRUBIN 0.3 mg/dL (0.2-1.0); TOTAL PROTEIN 6.7 g/dL (6.4-8.2)
--- NOTE | 2020-11-04 08:27 | RAD ---
EXAM: CT head without contrast INDICATION: Headache, shunt, possible CSF leak COMPARISON: CT head 11/27/2018 TECHNIQUE: Axial CT imaging through the head without intravenous contrast. One or more of the following individualized dose reduction techniques were utilized for this examinat ion: 1. Automated exposure control 2. Adjustment of the mA and/or kV according to patient size 3. Use of iterative reconstruction technique. FINDINGS: The ventricles and sulci are normal. Campo-white matter differentiation is maintained. There is no in tracranial hemorrhage, or acute infarct. A 1 cm pineal cyst with partial rim calcification is unchang ed. Basal cisterns are clear. The skull and scalp are intact. Paranasal sinuses and mastoid air cells are clear. Globes and orbits are intact.. IMPRESSION: No acute intracranial abnormality. Electronically signed by: Aliza Buck MD (11/04/2020 8:24 AM) [id number]
[2020-11-04 08:30] LABS: BACTERIA,URINE FEW /HPF (0-FEW); RBC,URINE 0 /HPF (0-2); WBC,URINE 0 /HPF (0-4)
[2020-11-04] MEDS: ONDANSETRON PF 4 MG/2 ML VIAL. IVP ONE (09:34)
[2020-11-04 10:07] LABS: % BANDS 1 % (0-9); % EOS 2 % (0-5); % LYMPHS 11 % (24-48); % MONOS 7 % (0-10); % SEGS 79 % (35-66); PLT ESTIMATE ADEQUATE (ADEQUATE)
[2020-11-04 10:08] LABS: ANISOCYTOSIS SLIGHT; HYPOCHROMIA SLIGHT
[2020-11-04] MEDS ORDERED: HYDR-3164 PO (10:19)
[2020-11-04 10:22] VITALS: BP 101/50
[2020-11-04] MEDS: HEPARIN PF 500 UNIT/5 ML DISP.SYRIN. IVP ONE (10:34)
== END 2020-11-04 10:40 | disposition home or self-care (01) ==
LOC: ER 06:17
DX: G43.909 Migraine, unspecified, not intractable, without status migrainosus (principal); R50.9 Fever, unspecified; R11.0 Nausea; I10 Essential (primary) hypertension; G40.909 Epilepsy, unspecified, not intractable, without status epilepticus; E66.9 Obesity, unspecified; Z68.44 Body mass index [BMI] 60.0-69.9, adult; Z90.89 Acquired absence of other organs; Z90.49 Acquired absence of other specified parts of digestive tract; Z98.890 Other specified postprocedural states; Z88.0 Allergy status to penicillin; Z88.1 Allergy status to other antibiotic agents; Z91.041 Radiographic dye allergy status
CPT/HCPCS: 36415; 70450; 80053; 81001; 81025; 85007; 85025; 96361; 96374; 96375; 99285; J1200; J1642; J2405; J2765; J7030

== ENCOUNTER → 2020-12-16 | Outpatient (CLI) | payer OTHER ==
[~2020-12-16] MED LIST changes: +ALBU2.5V8 IH; +AMIT50TA PO; +HYDR-2769 PO; -OMEP40CA45 PO; +OMEP40CA7 PO; +ONDA4TAB12 PO; +OXYC-325 PO; +SENN1TAB99 PO
== END ==
LOC: SURGPAT 09:26
PROVIDERS: ATTEND Neurological Surgery
DX: Z01.812 Encounter for preprocedural laboratory examination (principal); G93.2 Benign intracranial hypertension; Z88.0 Allergy status to penicillin; Z20.828 Contact with and (suspected) exposure to other viral communicable diseases
CPT/HCPCS: 87641; U0003

== ENCOUNTER 2020-12-21 06:36 | Inpatient (IN) | payer OTHER ==
[2020-12-21] VITALS (13 sets, daily range): BP systolic 91–135; BP diastolic 53–87
[~2020-12-21] VITALS: Ht 188 cm; Wt 197.5 kg
[~2020-12-21 06:36] MED LIST changes: +BACITRACIN 50,000 UNIT in IV NORMAL SALINE 1000ML BAG 1,000 ML IRR ONE; +CLINDAMYCIN 900MG PREMIX 50 ML IV PRN; -HYDR-2769 PO; -ONDA4TAB12 PO; -OXYC-325 PO; -SENN1TAB99 PO
[2020-12-21] MEDS ORDERED: LIDOCAINE 1% PF 2 ML VIAL. ID PRN (07:00)
[2020-12-21] MEDS ORDERED: ONDANSETRON PF 4 MG/2 ML VIAL. IV PRN (07:00)
[2020-12-21] MEDS ORDERED: PROCHLORPERAZINE 10 MG/2 ML VIAL. IV PRN (07:00)
[2020-12-21] MEDS ORDERED: IV RINGERS,LACTATED 1000ML 1,000 ML IV SCH (07:00)
[2020-12-21] MEDS ORDERED: fentaNYL PF VIAL 100 MCG/2 ML VIAL IV PRN (07:00)
[2020-12-21] MEDS ORDERED: HYDROmorphone 2 MG/ML VIAL IV PRN (07:00)
[2020-12-21] MEDS ORDERED: GELATIN SPONGE SIZE 100. ONE (07:07)
[2020-12-21] MEDS ORDERED: BUPIVACAINE-EPI 0.5% 30 ML VIAL KIT. ONE (07:08)
[2020-12-21] MEDS ORDERED: THROMBIN TOPICAL 20,000 UNIT SPRAY.SYRN KIT TP ONE (07:08)
[2020-12-21] MEDS ORDERED: HEPARIN PF 500 UNIT/5 ML DISP.SYRIN. IVP ONE (07:31)
[2020-12-21 07:42] LABS: BASO % 1 % (0-3); EOS # 0.2 x10^3/uL (0.0-0.7); EOS % 3 % (0-3); HEMATOCRIT 32.7 % (36.0-47.0); HEMOGLOBIN 10.4 g/dL (12.0-15.5); LYMPH % 15 % (24-48); MEAN CORPUSCULAR HEMOGLOBIN 25 pg (25-35); MEAN CORPUSCULAR HGB CONC 32 g/dL (31-37); MEAN CORPUSCULAR VOLUME 78 fL (79-100); MONO # 0.4 x10^3/uL (0.0-1.1); MONO % 5 % (0-9); NEUT # 5.3 x10^3/uL (1.8-7.7); NEUT % 77 % (31-73); PLATELET COUNT 165 x10^3/uL (140-400); RED BLOOD COUNT 4.21 x10^6/uL (3.50-5.40); RED CELL DISTRIBUTION WIDTH 17.6 % (11.5-14.5); WHITE BLOOD COUNT 6.9 x10^3/uL (4.0-11.0)
[2020-12-21 07:50] LABS: CALCIUM 9.2 mg/dL (8.5-10.1); CREATININE 0.8 mg/dL (0.6-1.0); GFR 82.6; POTASSIUM 3.9 mmol/L (3.5-5.1)
[2020-12-21 07:51] LABS: PROTHROMBIN TIME PATIENT 12.8 SEC (11.7-14.0)
[2020-12-21 07:55] LABS: ALBUMIN 3.1 g/dL (3.4-5.0); ALBUMIN/GLOBULIN RATIO 0.9 (1.0-1.7); TOTAL BILIRUBIN 0.4 mg/dL (0.2-1.0); TOTAL PROTEIN 6.4 g/dL (6.4-8.2)
[2020-12-21] MEDS ORDERED: CLINDAMYCIN PREMIX 900 MG/50 ML BAG IV ONE (08:00)
[2020-12-21 08:07] LABS: % ATYL 1 % (0-0); % BANDS 8 % (0-9); % LYMPHS 10 % (24-48); % MONOS 6 % (0-10); % SEGS 75 % (35-66); ANISOCYTOSIS SLIGHT; PLT ESTIMATE ADEQUATE (ADEQUATE)
[2020-12-21] MEDS ORDERED: fentaNYL PF VIAL 100 MCG/2 ML VIAL ONE ×2 (08:15→09:40)
[2020-12-21] MEDS ORDERED: PROPOFOL 10 MG/ML (20ML) VIAL. IV ONE (08:16)
[2020-12-21] MEDS ORDERED: MIDAZOLAM HCL/PF 2 MG/2 ML VIAL. ONE ×2 (08:16→08:47)
[2020-12-21] MEDS ORDERED: ONDANSETRON PF 4 MG/2 ML VIAL. ONE (08:17)
[2020-12-21] MEDS ORDERED: LIDOCAINE 2% PF 5 ML VIAL. ONE (08:17)
[2020-12-21] MEDS ORDERED: DEXAMETHASONE SOD PHOS 20 MG/5 ML VIAL. ONE (08:18)
[2020-12-21] MEDS ORDERED: LIDOCAINE 1% Multi-Dose 20 ML VIAL. ONE (09:00)
--- NOTE | 2020-12-21 09:33 | PDOC ---
BRIEF OPERATIVE NOTE Date: Dec 21, 2020 Pre-Op Diagnosis pseudotumor cerebri with presence of lumboperitoneal shunt Post-Op Diagnosis same Procedure Performed placement of left frontal intracranial pressure monitoring bolt Surgeon Lali Erp Consultant none Anesthesia Type: MAC, Local Blood Loss negligible Specimens Obtained none Findings ICP monitor with good waveform Complications none apparent BHASKAR ZENG MD Dec 21, 2020 09:33
[2020-12-21] MEDS: fentaNYL PF VIAL 100 MCG/2 ML VIAL IV PRN ×2 (09:44→10:02)
[2020-12-21] MEDS ORDERED: diphenhydrAMINE HCL 25 MG CAPSULE PO PRN (09:45)
[2020-12-21] MEDS ORDERED: hydrALAZINE 20 MG/ML VIAL. IVP PRN (09:45)
[2020-12-21] MEDS ORDERED: MAG HYDROX/ALUMINUM HYD/SIMETH 30 ML ORAL.SUSP PO PRN (09:45)
[2020-12-21] MEDS ORDERED: 0.9 % SODIUM CHLORIDE 10 ML DISP.SYRIN. IV PRN (09:45)
[2020-12-21] MEDS ORDERED: CALCIUM CARBONATE 500 MG TAB.CHEW PO PRN (09:45)
[2020-12-21] MEDS ORDERED: cloNIDine HCL 0.1 MG TABLET PO PRN (09:45)
[2020-12-21] MEDS ORDERED: diazePAM 5 MG TABLET PO PRN (09:45)
[2020-12-21] MEDS ORDERED: oxyCODONE/APAP 5/325 1 TAB TABLET PO PRN ×2 (09:45)
[2020-12-21] MEDS ORDERED: LABETALOL 20 MG/4 ML DISP.SYRIN. IVP PRN (09:45)
[2020-12-21] MEDS ORDERED: fentaNYL PF VIAL 100 MCG/2 ML VIAL IVP PRN (09:45)
[2020-12-21] MEDS ORDERED: MAGNESIUM HYDROXIDE 2,400 MG/30 ML ORAL.SUSP. PO PRN (09:45)
[2020-12-21] MEDS ORDERED: diphenhydrAMINE 50 MG/ML VIAL IV PRN (09:45)
[2020-12-21] MEDS ORDERED: GABAPENTIN 300 MG CAPSULE. PO PRN (09:45)
[2020-12-21] MEDS ORDERED: PROPOFOL 100 ML IV ONE (09:46)
[2020-12-21] MEDS ORDERED: MORPHINE SULFATE 2 MG/ML VIAL. ONE (10:13)
[2020-12-21] MEDS: MORPHINE SULFATE 2 MG/ML VIAL. IV PRN ×3 (10:15→11:12)
--- NOTE | 2020-12-21 11:02 | RAD ---
EXAM: CT HEAD WITHOUT CONTRAST. HISTORY: Intracranial pressure monitor placement. TECHNIQUE: Computed tomography of the head was performed without intravenous contrast. One or more of the following individualized dose reduction techniques were utilized for this examination: 1. Automated exposure control. 2. Adjustment of the mA and/or kV according to patient size. 3. Use of iterative reconstruction technique. COMPARISON: 11/04/2020, 11/27/2018. FINDINGS: A transcranial monitor is now in place along the left frontal bone. Mild underlying parench ymal hypoattenuation is consistent with edema. There is no intracranial hemorrhage. Leyva-white differ entiation is preserved elsewhere. The ventricles are normal in size and position. A rim calcification is again noted along the anterior aspect of a pineal cyst. This has been stable chronically. The turbinates have been resected. There are changes of bilateral ethmoid and maxillary sinus decompr ession. There is mild mucosal thickening throughout the sinuses. The orbits are unremarkable. The tem poral bones are unremarkable. The calvarium reveals no suspicious lesions. IMPRESSION: 1. Mild parenchymal edema immediately subjacent to the left frontal monitor site. Electronically signed by: Alton Goldstein MD (12/21/2020 11:00 AM) [id number]
[2020-12-21] MEDS: fentaNYL PF VIAL 100 MCG/2 ML VIAL IVP PRN ×3 (12:58→20:00)
[2020-12-21] MEDS: ONDANSETRON PF 4 MG/2 ML VIAL. IVP PRN ×2 (12:59→20:00)
[2020-12-21] MEDS ORDERED: ALBUTEROL SULFATE 2.5 MG/3 ML NEBU. NEB SCH (14:00)
--- NOTE | 2020-12-21 16:10 | NUR ---
Pt was admitted from OR at 1100. [place] [facility] monitor in place as well as left cranial ICP bolt. Pt c/o headache, given pain meds prn. Pt up to commode a few times without difficulty. Pt also c/o nausea, zofran did not help, paged Dr Escalera. Dr Escalera in to see pt, order for phenergan received. Dr Escalera also said pt did not need to have HOB restrictions any longer.
[2020-12-21] MEDS: PROMETHAZINE 12.5 MG TABLET. PO PRN ×2 (16:20→23:07)
[2020-12-21] MEDS ORDERED: MORPHINE SULFATE 2 MG/ML VIAL. IV PRN (17:30)
[2020-12-21] MEDS ORDERED: oxyCODONE/APAP 7.5/325 1 TAB TABLET PO PRN (17:30)
[2020-12-21] MEDS: MORPHINE SULFATE 4 MG/ML VIAL. IV PRN ×2 (17:34→23:06)
[2020-12-21] MEDS: CLINDAMYCIN 900MG PREMIX 50 ML IV SCH (18:07)
[2020-12-21] MEDS: metFORMIN 500 MG TABLET PO SCH (18:07)
[2020-12-21] MEDS ORDERED: tiZANidine 4 MG TABLET. PO SCH (21:00)
[2020-12-21] MEDS ORDERED: AMITRIPTYLINE HCL 25 MG TABLET. PO SCH (21:00)
[2020-12-21] MEDS: SENNOSIDES/DOCUSATE 8.6/50MG TABLET. PO SCH (21:00)
[2020-12-21] MEDS: DOCUSATE SODIUM 100 MG CAPSULE. PO SCH (21:01)
[2020-12-21] MEDS: oxyCODONE/APAP 7.5/325 1 TAB TABLET PO PRN (21:01)
[2020-12-21] MEDS: FAMOTIDINE 20 MG TABLET. PO SCH (21:01)
[2020-12-21] MEDS ORDERED: ALBUTEROL SULFATE 2.5 MG/3 ML NEBU. NEB PRN (22:15)
[2020-12-22] VITALS (14 sets, daily range): BP systolic 100–147; BP diastolic 53–77
[2020-12-22] MEDS: CLINDAMYCIN 900MG PREMIX 50 ML IV SCH ×2 (01:08→09:14)
[2020-12-22] MEDS: oxyCODONE/APAP 7.5/325 1 TAB TABLET PO PRN ×2 (01:18→06:24)
[2020-12-22] MEDS: ONDANSETRON PF 4 MG/2 ML VIAL. IVP PRN ×2 (04:00→13:13)
[2020-12-22] MEDS: MORPHINE SULFATE 4 MG/ML VIAL. IV PRN ×3 (04:01→13:14)
[2020-12-22] MEDS: PROMETHAZINE 12.5 MG TABLET. PO PRN (06:24)
[2020-12-22] MEDS ORDERED: PANTOPRAZOLE 40 MG TABLET.DR. PO SCH (07:30)
[2020-12-22] MEDS: metFORMIN 500 MG TABLET PO SCH (08:00)
--- NOTE | 2020-12-22 08:28 | NUR ---
Patient is request to take colace daily instead of BID. Will non-admin at this time and speak with night nurse about the request. Addendum: 12/22/20 at 0832 by PHILIPP MARKHAM RN Patient is requesting that both Colace and Senna are daily instead of BID at this time. Non-administered both 0900 medications.
[2020-12-22] MEDS: DOCUSATE SODIUM 100 MG CAPSULE. PO SCH (08:30)
[2020-12-22] MEDS: SENNOSIDES/DOCUSATE 8.6/50MG TABLET. PO SCH (08:31)
[2020-12-22] MEDS: FAMOTIDINE 20 MG TABLET. PO SCH (09:14)
[2020-12-22] MEDS: fentaNYL PF VIAL 100 MCG/2 ML VIAL IVP PRN (09:50)
[2020-12-22] MEDS ORDERED: LIDOCAINE 1% Multi-Dose 20 ML VIAL. INJ ONE (11:00)
[2020-12-22] MEDS ORDERED: ALTEPLASE 2MG VIAL 5 MG in IV NORMAL SALINE 50ML 30 ML IV ONE (11:00)
--- NOTE | 2020-12-22 11:03 | PDOC ---
Date of Service: DATE: 12/22/20 TIME: 10:57 Progress Note: S: reports headache, a few isolated spikes in ICP reported to related to activity but largely single digits to teens O: AF/VSS, AAOx4, CN 2-12 intact, FAM 5/5, sensation intact LT, left frontal bolt in place, ICP currently 9-11 with good waveform A: pseudotumor cerebri with apparently functional lumboperitoneal shunt with normal ICP absent of any sustained elevation by bolt monitoring over last 24 hours P: d/c bolt, additional shunting or revision not recommended at this time with normal ICP findings, pt to follow-up with her neuro-opthalmologist who she last saw 08/2020 - may benefit from optic nerve sheath fenestration depending on findings there Justifications for Admission Other Justification BHASKAR ZENG MD Dec 22, 2020 11:03
[2020-12-22] MEDS ORDERED: OXYC-325 PO (12:51)
[2020-12-22] MEDS ORDERED: SENN1TAB99 PO (12:54)
[2020-12-22] MEDS ORDERED: HEPARIN PF 500 UNIT/5 ML DISP.SYRIN. IVP ONE (13:15)
--- NOTE | 2020-12-29 07:43 | OP ---
DATE OF SURGERY: 12/21/2020 PREOPERATIVE DIAGNOSIS: Pseudotumor cerebri with presence of lumboperitoneal shunt. POSTOPERATIVE DIAGNOSIS: Pseudotumor cerebri with presence of lumboperitoneal shunt. PROCEDURE: Placement of left frontal intracranial pressure monitor bolt. SURGEON: Salinas Zeng MD INDUSTRIAL RECRUITER: None. ANESTHESIA: MAC and local. INDICATIONS FOR THE PROCEDURE: The patient is a 35-year-old female who carries a diagnosis of pseudotumor cerebri. She has been treated with a lumboperitoneal shunt and there is concern that the shunt may be malfunctioning. It was determined that direct intracranial pressure monitoring be instituted to see what her intracranial pressure is before potential further intervention. Please refer to the patient's chart for additional detail. DESCRIPTION OF PROCEDURE: After informed consent was obtained, the patient was brought to the operating room. She was placed under MAC. The hair was clippered in the left frontal region and the region was prepped and draped in the usual sterile fashion. Leanne's point was approximated 1 cm anterior to the coronal suture in the midpupillary line on the left. This region was anesthetized with a local anesthetic after clindamycin was instituted as a prophylactic antibiotic. A stab incision was made at this location to the underlying bone with a 15-blade scalpel. A hand twist drill was utilized from the cranial access kit with a bit appropriate for the bolt apparatus to access the intracranial space. A spinal needle was gently instituted to puncture the underlying dura. The bolt apparatus was instituted and tightened into place without complication. The monitoring cable was sterilely attached to the Sonia monitor and zeroed to air. This was gently inserted through the bolt apparatus into the intracranial space slightly within the brain parenchyma. A good waveform was noted and the cable was secured according to airplane cabin attendant's specifications. Betadine soaked gauzed was utilized as a dressing around the base of the bolt apparatus. Tegaderm was instituted as additional dressing. The initial supine transduced ICP was 17 with a good waveform. All counts were correct at the end of procedure. There were no intraprocedural complications. The patient was subsequently awakened and taken to recovery in stable condition. SALINAS ZENG MD DR: ANGELA/lucio JOB#: [id number] / [id number] REID
[2021-02-22] MEDS ORDERED: HYDR-2761 PO (13:31)
[2021-02-22] MEDS ORDERED: ONDA4TAB12 PO (14:09)
[2021-05-04] MEDS ORDERED: HYDR-2769 PO (22:48)
== END 2020-12-22 13:45 | disposition home or self-care (01) | DRG 26 ==
LOC: OPSVCIP 06:36 → 1 WEST ICU 11:00
PROVIDERS: ADMIT Neurological Surgery; ATTEND Neurological Surgery
PROC: 4A103BD Monitoring of Intracranial Pressure, Percutaneous Approach (ICD-10-PCS; 2020-12-21)
PROC: 00H032Z Insertion of Monitoring Device into Brain, Percutaneous Approach (ICD-10-PCS; principal; 2020-12-21 08:30)
DX: G93.2 Benign intracranial hypertension (principal); Z68.43 Body mass index [BMI] 50.0-59.9, adult; Z98.2 Presence of cerebrospinal fluid drainage device; Z88.6 Allergy status to analgesic agent; Z88.1 Allergy status to other antibiotic agents; Z91.041 Radiographic dye allergy status; Z88.0 Allergy status to penicillin; E66.01 Morbid (severe) obesity due to excess calories
CPT/HCPCS: 36415; 70450; 80053; 81025; 83036; 85007; 85025; 85610; 85730; 94618; J1100; J1642; J2250; J2270; J2405; J2704; J3010; J3490; J7030; J7120; G0378; Q0169

== ENCOUNTER 2021-07-29 03:33 | Emergency (ER) | payer OTHER ==
[~2021-07-29] VITALS: Ht 188 cm; Wt 202.7 kg
[~2021-07-29 03:33] MED LIST changes: -BACITRACIN 50,000 UNIT in IV NORMAL SALINE 1000ML BAG 1,000 ML IRR ONE; -CLINDAMYCIN 900MG PREMIX 50 ML IV PRN; +HYDR-2769 PO; +ONDA4TAB12 PO; +OXYC-325 PO; +SENN1TAB99 PO
--- NOTE | 2021-07-29 04:10 | RAD ---
EXAM: CT head without contrast INDICATION: Headache, seizure, dilated right pupil COMPARISON: CT head 05/05/2020 TECHNIQUE: Axial CT imaging through the head without intravenous contrast. Sagittal and coronal refor mats were obtained. One or more of the following individualized dose reduction techniques were utilized for this examinat ion: 1. Automated exposure control 2. Adjustment of the mA and/or kV according to patient size 3. Use of iterative reconstruction technique. FINDINGS: The ventricles and sulci are normal. Campo-white matter differentiation is maintained. There is no in tracranial hemorrhage, or acute infarct. 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 No midline shift. The basal are clear. The skull and scalp are intact. Paranasal sinuses and mastoid air cells are clear. Globes and orbits are intact.. IMPRESSION: No acute intracranial abnormality. Electronically signed by: Aliza Buck MD (07/29/2021 4:08 AM) [id number]
[2021-07-29 04:49] LABS: BILIRUBIN,URINE NEGATIVE (NEG); CLARITY,URINE CLEAR; COLOR,URINE YELLOW; NITRITE,URINE NEGATIVE (NEG); PH,URINE 8.5 (<5.0-8.0); PROTEIN,URINE NEGATIVE (NEG-TRACE); UROBILINOGEN,URINE 0.2 mg/dL (0.2 mg/dL)
--- NOTE | 2021-07-29 04:51 | PHYS DOC ---
Past Medical History Past Medical History: Hypertension, Migraines, Seizure, Other Additional Past Medical Histor: VNS-UPPER LEFT CHEST,BECHETS,OBESITY, PCOS,EPILEPSY, INTRACRANIAL HTN Past Surgical History: Appendectomy, Cholecystectomy Additional Past Surgical Histo: PAC,R KNEE,SPENCER FILTER,VNS,LP SHUNT,CRANIAL BOLT/ICP MONITOR Smoking Status: Never Smoker Alcohol Use: None Drug Use: None General Adult EDM: Chief Complaint: SEIZURE HPI: HPI: Patient is a 36 year old female who present to ER for evaluation of headache and seizure activity. Patient has history of epileptic and nonepileptic seizure for a long time. Patient also has history of intracranial hypertension, had LP shunt. Patient is under the care of a neurologist at [facility], she is on Valium and gabapentin for breakthrough seizure. Patient also under the care of a neuro loading unit operator seating for her blurry vision problem. Patient says she has been doing okay lately, last time she had a seizure was a while back. Her states that she had about 4 episodes of seizure since yesterday. Patient also complains of severe headache. Patient is on Lortab and MS Contin for her headache. Patient denies any cough or fever, no chest pain, no abdominal pain. Review of Systems: Review of Systems: Constitutional: Denies fever or chills. [] Eyes: Positive for blurred vision HENT: Denies nasal congestion or sore throat. [] Respiratory: Denies cough or shortness of breath. [] Cardiovascular: Denies chest pain or edema. [] GI: Denies abdominal pain, nausea, vomiting, bloody stools or diarrhea. [] : Denies dysuria. [] Musculoskeletal: Denies back pain or joint pain. [] Integument: Denies rash. [] Neurologic: Positive headache, no focal weakness or no sensory changes. Endocrine: Denies polyuria or polydipsia. [] Lymphatic: Denies swollen glands. [] Psychiatric: Denies depression or anxiety. [] Heart Score: C/O Chest Pain: N/A Risk Factors: Risk Factors: DM, Current or recent (<one month) smoker, HTN, HLP, family history of CAD, obesity. Risk Scores: Score 0 - 3: 2.5% MACE over next 6 weeks - Discharge Home Score 4 - 6: 20.3% MACE over next 6 weeks - Admit for Clinical Observation Score 7 - 10: 72.7% MACE over next 6 weeks - Early Invasive Strategies Allergies: Allergies: Allergies Coded Allergies Type Severity Reaction Last Updated Verified Iodinated Contrast Media Allergy Severe 02/18/21 Yes Penicillins Allergy Intermediate Swellingand hives 12/21/20 Yes amoxicillin Allergy Intermediate Swelling and hives 12/21/20 Yes aspirin Allergy Intermediate Hives, OK with premed 02/19/21 Yes iodine Allergy Intermediate Hives iv contrast dye 12/21/20 Yes Physical Exam: PE: Constitutional: Well developed, well nourished, no acute distress, non-toxic appearance. [] HENT: Normocephalic, atraumatic, bilateral external ears normal, oropharynx moist, no oral exudates, nose normal. [] Eyes: Right pupil is bigger than left pupil, they are equal when the light was dimmed, EOMI, conjunctiva normal, no discharge. [] Neck: Normal range of motion, no tenderness, supple, no stridor. [] Cardiovascular:Heart rate regular rhythm, no murmur [] Lungs & Thorax: Bilateral breath sounds clear to auscultation [] Abdomen: Bowel sounds normal, soft, no tenderness, no masses, no pulsatile masses. [] Skin: Warm, dry, no erythema, no rash. [] Back: No tenderness, no CVA tenderness. [] Extremities: No tenderness, no cyanosis, no clubbing, ROM intact, no edema. [] Neurologic: Alert and oriented X 3, normal motor function, normal sensory function, no focal deficits noted. [] Psychologic: Affect normal, judgement normal, mood normal. [] Current Patient Data: Labs: Laboratory Tests Test 07/29/21 04:08 07/29/21 04:24 SARS-CoV-2 Antigen (Rapid) Negative (NEGATIVE) POC Urine HCG, Qualitative Hcg negative (Negative) Vital Signs: Vital Signs Date Time Temp Pulse Resp B/P (MAP) Pulse Ox O2 Delivery O2 Flow Rate FiO2 07/29/21 03:35 99.3 113 22 117/89 (98) 97 Room Air 99.3 EKG: EKG: [] Radiology/Procedures: Radiology/Procedures: [facility] [address] [place] [address] IMAGING REPORT Signed PATIENT: RENA WHEELER ACCOUNT: [id number] : 1985 LOCATION: ER AGE: 36 SEX: F EXAM STATUS: PRE ER ORD. PHYSICIAN: YOAN CARLIN DO REASON: headache, seizure, right pupil dilated, hx of pseudo tumor cerebri PROCEDURE: CT HEAD WO CONTRAST EXAM: CT head without contrast INDICATION: Headache, seizure, dilated right pupil COMPARISON: CT head 05/05/2020 TECHNIQUE: Axial CT imaging through the head without intravenous contrast. Sagittal and coronal reformats were obtained. One or more of the following individualized dose reduction techniques were utilized for this examination: 1. Automated exposure control 2. Adjustment of the mA and/or kV according to patient size 3. Use of iterative reconstruction technique. FINDINGS: The ventricles and sulci are normal. Campo-white matter differentiation is maintained. There is no intracranial hemorrhage, or acute infarct. 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 No midline shift. The basal are clear. The skull and scalp are intact. Paranasal sinuses and mastoid air cells are clear. Globes and orbits are intact.. IMPRESSION: No acute intracranial abnormality. Electronically signed by: Aliza Buck MD (07/29/2021 4:08 AM) [id number] DICTATED and SIGNED BY: ALIZA BUCK MD DATE: 07/29/21 [id number] Course & Med Decision Making: Course & Med Decision Making Pertinent Labs and Imaging studies reviewed. (See chart for details) Patient is a 36-year-old female with a history of pseudotumor cerebri, intractable headache, had LP shunt. Patient presented to ER due to seizure activity and headache. Patient did not have any seizure activity in ER. We did CT scan her head did not show any acute problem. Patient was given medication in ER, patient feel much better, patient will need to follow-up with her neurologist at [facility]. Naomi Disclaimer: Naomi Disclaimer: This electronic medical record was generated, in whole or in part, using a voice recognition dictation system. Departure Departure Impression: Primary Impression: Headache Additional Impression: Seizure Disposition: 01 HOME / SELF CARE / HOMELESS Condition: STABLE Referrals: KEDAR SINGER PA-C (PCP) Please call your neurologist today for follow-up this week. Patient Instructions: General Headache Without Cause, Seizure, Adult Additional Instructions: Thank you for visiting our Emergency Department. We appreciate you trusting us with your care. If any additional problems come up don't hesitate to return to visit us. Please follow up with your primary care provider so they can plan additional care if needed and know about the problem that you had. If symptoms worsen come back to the Emergency Department. Any concerning symptoms that start such as chest pain, shortness of air, weakness or numbness on one side of the body, running high fevers or any other concerning symptoms return to the ER. YOAN CARLIN DO Jul 29, 2021 04:51
[2021-07-29 05:00] VITALS: BP 175/92
[2021-07-29] MEDS ORDERED: METOCLOPRAMIDE HCL 10 MG/2 ML VIAL. IVP ONE (05:00)
[2021-07-29] MEDS ORDERED: diphenhydrAMINE 50 MG/ML VIAL IVP ONE (05:00)
[2021-07-29 05:02] LABS: BASO % 0 % (0-3); EOS # 0.2 x10^3/uL (0.0-0.7); EOS % 3 % (0-3); HEMATOCRIT 35.9 % (36.0-47.0); HEMOGLOBIN 11.7 g/dL (12.0-15.5); LYMPH # 1.3 x10^3/uL (1.0-4.8); LYMPH % 13 % (24-48); MEAN CORPUSCULAR HEMOGLOBIN 26 pg (25-35); MEAN CORPUSCULAR HGB CONC 33 g/dL (31-37); MEAN CORPUSCULAR VOLUME 80 fL (79-100); MONO # 0.5 x10^3/uL (0.0-1.1); MONO % 5 % (0-9); NEUT # 7.4 x10^3/uL (1.8-7.7); NEUT % 79 % (31-73); PLATELET COUNT 170 x10^3/uL (140-400); RED BLOOD COUNT 4.51 x10^6/uL (3.50-5.40); RED CELL DISTRIBUTION WIDTH 15.9 % (11.5-14.5); WHITE BLOOD COUNT 9.4 x10^3/uL (4.0-11.0)
[2021-07-29 05:09] LABS: BACTERIA,URINE FEW /HPF (0-FEW); RBC,URINE 0 /HPF (0-2); WBC,URINE 0 /HPF (0-4)
[2021-07-29 05:18] LABS: CALCIUM 9.3 mg/dL (8.5-10.1); CREATININE 0.8 mg/dL (0.6-1.0); GFR 82.1; POTASSIUM 3.9 mmol/L (3.5-5.1)
[2021-07-29 05:20] LABS: ALBUMIN 3.4 g/dL (3.4-5.0); ALBUMIN/GLOBULIN RATIO 0.9 (1.0-1.7); MAGNESIUM 2.1 mg/dL (1.8-2.4); TOTAL BILIRUBIN 0.3 mg/dL (0.2-1.0); TOTAL PROTEIN 7.1 g/dL (6.4-8.2)
[2021-07-29] MEDS ORDERED: MORPHINE SULFATE 4 MG/ML INJ. IVP ONE (05:30)
[2021-07-29] MEDS ORDERED: HEPARIN PF 500 UNIT/5 ML DISP.SYRIN. IVP ONE (06:45)
[2021-07-29 07:47] LABS: % EOS 1 % (0-5); % LYMPHS 14 % (24-48); % MONOS 2 % (0-10); % SEGS 83 % (35-66); PLT ESTIMATE ADEQUATE (ADEQUATE)
--- NOTE | 2021-07-29 17:02 | NUR ---
IP: Attempted to contact pt concerning covid results. No answer, left a voicemail to return the call.
== END 2021-07-29 07:09 | disposition home or self-care (01) ==
LOC: ER 03:33
DX: G40.909 Epilepsy, unspecified, not intractable, without status epilepticus (principal); G43.909 Migraine, unspecified, not intractable, without status migrainosus; I10 Essential (primary) hypertension; Z20.822 Contact with and (suspected) exposure to COVID-19; Z91.041 Radiographic dye allergy status; Z88.0 Allergy status to penicillin; Z88.1 Allergy status to other antibiotic agents; Z88.6 Allergy status to analgesic agent; Z88.8 Allergy status to other drugs, medicaments and biological substances
CPT/HCPCS: 36415; 70450; 80053; 81001; 81025; 83735; 85007; 85025; 87426; 96374; 96375; 99285; J1200; J1642; J2270; J2765; U0003; U0005

== ENCOUNTER 2021-08-04 14:15 | Emergency (ER) | payer MEDICARE, OTHER ==
[~2021-08-04] VITALS: Ht 188 cm; Wt 202.0 kg
[2021-08-04] MEDS ORDERED: 0.9 % SOD CHL for STERILE FIELD 10 ML DISP.SYRIN. ONE (17:20)
[2021-08-04] MEDS ORDERED: IV NORMAL SALINE 1000ML BAG 1,000 ML IV ONE (17:45)
[2021-08-04] MEDS ORDERED: MORPHINE SULFATE 4 MG/ML INJ. IVP ONE (17:45)
[2021-08-04] MEDS ORDERED: ONDANSETRON PF 4 MG/2 ML VIAL. IVP ONE (17:45)
[2021-08-04 17:49] LABS: BASO % 0 % (0-3); EOS # 0.2 x10^3/uL (0.0-0.7); EOS % 3 % (0-3); HEMATOCRIT 35.6 % (36.0-47.0); HEMOGLOBIN 11.6 g/dL (12.0-15.5); LYMPH # 1.1 x10^3/uL (1.0-4.8); LYMPH % 12 % (24-48); MEAN CORPUSCULAR HEMOGLOBIN 26 pg (25-35); MEAN CORPUSCULAR HGB CONC 33 g/dL (31-37); MEAN CORPUSCULAR VOLUME 79 fL (79-100); MONO # 0.5 x10^3/uL (0.0-1.1); MONO % 5 % (0-9); NEUT # 7.4 x10^3/uL (1.8-7.7); NEUT % 80 % (31-73); PLATELET COUNT 178 x10^3/uL (140-400); RED BLOOD COUNT 4.51 x10^6/uL (3.50-5.40); RED CELL DISTRIBUTION WIDTH 16.4 % (11.5-14.5); WHITE BLOOD COUNT 9.3 x10^3/uL (4.0-11.0)
[2021-08-04 17:52] LABS: BILIRUBIN,URINE NEGATIVE (NEG); CLARITY,URINE CLEAR; COLOR,URINE YELLOW; NITRITE,URINE NEGATIVE (NEG); PROTEIN,URINE NEGATIVE (NEG-TRACE); UROBILINOGEN,URINE 0.2 mg/dL (0.2 mg/dL)
[2021-08-04 17:57] LABS: BACTERIA,URINE FEW /HPF (0-FEW); RBC,URINE 0 /HPF (0-2); WBC,URINE OCC /HPF (0-4)
[2021-08-04 17:58] LABS: CALCIUM 8.9 mg/dL (8.5-10.1); CREATININE 0.8 mg/dL (0.6-1.0); GFR 82.1; POTASSIUM 3.9 mmol/L (3.5-5.1)
[2021-08-04 18:04] LABS: ALBUMIN 3.4 g/dL (3.4-5.0); TOTAL BILIRUBIN 0.3 mg/dL (0.2-1.0); TOTAL PROTEIN 6.8 g/dL (6.4-8.2)
--- NOTE | 2021-08-04 18:07 | RAD ---
CT HEAD/BRAIN WO History: Reason: headache / Spl. Instructions: / History: Comparison: July 29, 2021 Technique: Noncontrast CT imaging was performed of the head. Exposure: One or more of the following individualized dose reduction techniques were utilized for thi s examination: 1. Automated exposure control 2. Adjustment of the mA and/or kV according to patient size 3. Use of iterative reconstruction technique. Findings: No intracranial hemorrhage. No mass effect. No hydrocephalus. Incidentally noted pineal cyst measures approximately 0.7 x 0.5 cm with peripheral calcification, unc hanged. Imaged orbits are unremarkable. Postoperative changes paranasal sinuses. Mild paranasal sinus mucosal thickening. Mastoid air cells are clear. No acute calvarial fracture. Impression: 1. No acute intracranial abnormality. Electronically signed by: Channing Gleason DO (08/04/2021 6:05 PM) [facility]
--- NOTE | 2021-08-04 18:24 | PHYS DOC ---
Past Medical History Past Medical History: Hypertension, Migraines, Seizure, Other Additional Past Medical Histor: VNS-UPPER LEFT CHEST,BECHETS,OBESITY, PCOS,EPILEPSY, INTRACRANIAL HTN (NENADIANELYS KRISHNAMURTHY SUPERVISOR OPENING AND PICKING) Past Surgical History: Appendectomy, Cholecystectomy Additional Past Surgical Histo: PAC,R KNEE,SPENCER FILTER,VNS,LP SHUNT,CRANIAL BOLT/ICP MONITOR (DIANELYS ROBERTSON SUPERVISOR OPENING AND PICKING) Smoking Status: Never Smoker Alcohol Use: None Drug Use: None (DIANELYS ROBERTSON SUPERVISOR OPENING AND PICKING) General Adult EDM: Chief Complaint: HEADACHE HPI: HPI: Patient is a 36 year old female with history of chronic headaches,Behcets, Crohns, GERD, HTN, prior DVT/PE s/p IVC filter, anxiety/depression, PCOS, morbid obesity, and intracranial hypertension with LP shunting, right knee surgery, appendectomy, cholecystectomy, overweight, seizures who presents to the ED today complaining of 10 out of 10 chronic posterior headache with nausea no vomiting and unequal pupils, symptoms have been going on since Sunday. Patient states she went to the PCPs office Dr. Kahn, was seen by Dr. Kahn and sent to the ED to be admitted. She states Dr. Kahn could not do a direct admit because hospitals are not taking direct admit anymore. (DIANELYS ROBERTSON SUPERVISOR OPENING AND PICKING) Review of Systems: Review of Systems: Constitutional: Denies fever or chills. [] Eyes: Reports unequal pupils. Denies change in visual acuity. [] HENT: Denies nasal congestion or sore throat. [] Respiratory: Denies cough or shortness of breath. [] Cardiovascular: Denies chest pain or edema. [] GI: Reports nausea. Denies abdominal pain, vomiting, bloody stools or diarrhea. [] : Denies dysuria. [] Musculoskeletal: Denies back pain or joint pain. [] Integument: Denies rash. [] Neurologic: Reports headache, denies focal weakness or sensory changes. [] Psychiatric: Denies depression or anxiety. [] (DIANELYS ROBERTSON SUPERVISOR OPENING AND PICKING) Heart Score: C/O Chest Pain: N/A Risk Factors: Risk Factors: DM, Current or recent (<one month) smoker, HTN, HLP, family history of CAD, obesity. Risk Scores: Score 0 - 3: 2.5% MACE over next 6 weeks - Discharge Home Score 4 - 6: 20.3% MACE over next 6 weeks - Admit for Clinical Observation Score 7 - 10: 72.7% MACE over next 6 weeks - Early Invasive Strategies (DIANELYS ROBERTSON APRN) Current Medications: Current Medications Medications (Trade) Dose Ordered Sig/Munira Start Time Stop Time Status Last Admin Dose Admin Morphine Sulfate (Morphine Sulfate) 4 mg 1X ONCE 08/04/21 17:45 08/04/21 17:46 DC 08/04/21 17:58 4 MG Ondansetron HCl (Zofran) 4 mg 1X ONCE 08/04/21 17:45 08/04/21 17:46 DC 08/04/21 17:57 4 MG Sodium Chloride 1,000 ml @ 1,000 mls/hr 1X ONCE 08/04/21 17:45 08/04/21 18:44 08/04/21 17:56 1,000 MLS/HR Sodium Chloride (NORMAL SALINE FLUSH for STERILE FIELD) 10 ml STK-MED ONCE 08/04/21 17:20 08/04/21 17:20 DC (DIANELYS ROBERTSON SUPERVISOR OPENING AND PICKING) Allergies: Allergies: Allergies Coded Allergies Type Severity Reaction Last Updated Verified Iodinated Contrast Media Allergy Severe 02/18/21 Yes Penicillins Allergy Intermediate Swellingand hives 12/21/20 Yes amoxicillin Allergy Intermediate Swelling and hives 12/21/20 Yes aspirin Allergy Intermediate Hives, OK with premed 02/19/21 Yes iodine Allergy Intermediate Hives iv contrast dye 12/21/20 Yes (DIANELYS ROBERTSON SUPERVISOR OPENING AND PICKING) Physical Exam: PE: Constitutional: Well developed, well nourished, no acute distress, non-toxic appearance. [] HENT: Normocephalic, atraumatic, bilateral external ears normal, oropharynx moist, no oral exudates, nose normal. [] Eyes: +4left pupil, +5right pupil, both pupils sluggish to light, conjunctiva normal, no discharge. [] Neck: Normal range of motion, no tenderness, supple, no stridor. [] Cardiovascular:Heart rate regular rhythm, no murmur [] Lungs & Thorax: Bilateral breath sounds clear to auscultation [] Abdomen: Bowel sounds normal, soft, no tenderness, no masses, no pulsatile masses. [] Skin: Warm, dry, no erythema, no rash. [] Back: No tenderness, no CVA tenderness. [] Extremities: No tenderness, no cyanosis, no clubbing, ROM intact, no edema. [] Neurologic: Alert and oriented X 3, normal motor function, normal sensory functi on, no focal deficits noted. Cranial nerves II through XII intact Psychologic: Affect normal, judgement normal, mood normal. [] (MARCELODIANELYS Lyman APRN) Current Patient Data: Labs: Laboratory Tests Test 08/04/21 16:35 08/04/21 16:39 08/04/21 17:37 Urine Collection Type Unknown Urine Color Yellow Urine Clarity Clear Urine pH 6.0 (<5.0-8.0) Urine Specific Gepp <=1.005 (1.000-1.030) Urine Protein Negative mg/dL (NEG-TRACE) Urine Glucose (UA) Negative mg/dL (NEG) Urine Ketones (Stick) Negative mg/dL (NEG) Urine Blood Negative (NEG) Urine Nitrite Negative (NEG) Urine Bilirubin Negative (NEG) Urine Urobilinogen Dipstick 0.2 mg/dL (0.2 mg/dL) Urine Leukocyte Esterase Negative (NEG) Urine RBC 0 /HPF (0-2) Urine WBC Occ /HPF (0-4) Urine Squamous Epithelial Cells Mod /LPF Urine Bacteria Few /HPF (0-FEW) POC Urine HCG, Qualitative Hcg negative (Negative) White Blood Count 9.3 x10^3/uL (4.0-11.0) Red Blood Count 4.51 x10^6/uL (3.50-5.40) Hemoglobin 11.6 g/dL (12.0-15.5) L Hematocrit 35.6 % (36.0-47.0) L Mean Corpuscular Volume 79 fL (79-100) Mean Corpuscular Hemoglobin 26 pg (25-35) Mean Corpuscular Hemoglobin Concent 33 g/dL (31-37) Red Cell Distribution Width 16.4 % (11.5-14.5) H Platelet Count 178 x10^3/uL (140-400) Neutrophils (%) (Auto) 80 % (31-73) H Lymphocytes (%) (Auto) 12 % (24-48) L Monocytes (%) (Auto) 5 % (0-9) Eosinophils (%) (Auto) 3 % (0-3) Basophils (%) (Auto) 0 % (0-3) Neutrophils # (Auto) 7.4 x10^3/uL (1.8-7.7) Lymphocytes # (Auto) 1.1 x10^3/uL (1.0-4.8) Monocytes # (Auto) 0.5 x10^3/uL (0.0-1.1) Eosinophils # (Auto) 0.2 x10^3/uL (0.0-0.7) Basophils # (Auto) 0.0 x10^3/uL (0.0-0.2) Sodium Level 142 mmol/L (136-145) Potassium Level 3.9 mmol/L (3.5-5.1) Chloride Level 104 mmol/L (98-107) Carbon Dioxide Level 31 mmol/L (21-32) Anion Gap 7 (6-14) Blood Urea Nitrogen 7 mg/dL (7-20) Creatinine 0.8 mg/dL (0.6-1.0) Estimated GFR (Cockcroft-Gault) 82.1 BUN/Creatinine Ratio 9 (6-20) Glucose Level 97 mg/dL (70-99) Calcium Level 8.9 mg/dL (8.5-10.1) Total Bilirubin 0.3 mg/dL (0.2-1.0) Aspartate Amino Transferase (AST) 8 U/L (15-37) L Alanine Aminotransferase (ALT) 28 U/L (14-59) Alkaline Phosphatase 85 U/L (46-116) Total Protein 6.8 g/dL (6.4-8.2) Albumin 3.4 g/dL (3.4-5.0) Albumin/Globulin Ratio 1.0 (1.0-1.7) Laboratory Tests 08/04/21 17:37 Laboratory Tests 08/04/21 17:37 Vital Signs: Vital Signs Date Time Temp Pulse Resp B/P (MAP) Pulse Ox O2 Delivery O2 Flow Rate FiO2 08/04/21 16:53 104 16 236/128 (164) 97 Room Air (DIANELYS ROBERTSON APRN) EKG: EKG: [] (DIANELYS ROBERTSON APRN) Radiology/Procedures: Radiology/Procedures: []PROCEDURE: CT HEAD WO CONTRAST CT HEAD/BRAIN WO History: Reason: headache / Spl. Instructions: / History: Comparison: July 29, 2021 Technique: Noncontrast CT imaging was performed of the head. Exposure: One or more of the following individualized dose reduction techniques were utilized for this examination: 1. Automated exposure control 2. Adjustment of the mA and/or kV according to patient size 3. Use of iterative reconstruction technique. Findings: No intracranial hemorrhage. No mass effect. No hydrocephalus. Incidentally noted pineal cyst measures approximately 0.7 x 0.5 cm with peripheral calcification, unchanged. Imaged orbits are unremarkable. Postoperative changes paranasal sinuses. Mild paranasal sinus mucosal thickening. Mastoid air cells are clear. No acute calvarial fracture. Impression: 1. No acute intracranial abnormality. Electronically signed by: Channing Gleason DO (08/04/2021 6:05 PM) [facility] DICTATED and SIGNED BY: CHANNING GLEASON DO DATE: 08/04/21 [id number] (DIANELYS ROBERTSON SUPERVISOR OPENING AND PICKING) Course & Med Decision Making: Course & Med Decision Making Pertinent Labs and Imaging studies reviewed. (See chart for details) This is a 36-year-old female patient well-known to this ED presenting today complaining of unequal pupils, headache and nausea, symptoms since Sunday though they are chronic. Patient states the PCP sent her to the ED to be admitted because he could not do a direct admit. I contacted Dr. Kahn patient's PCP, he stated patient was seen in the office by one of the midlevel's. He states patient was never sent to the ED to be admitted. He states the complaints patient has are chronic. Patient labs are negative for any acute findings, CT of the head is negative. Reassured patient, discharge to home. She also has a neurosurgeon, recommended she follows up as soon as possible (DIANELYS ROBERTSON SUPERVISOR OPENING AND PICKING) Dragon Disclaimer: Dragon Disclaimer: This electronic medical record was generated, in whole or in part, using a voice recognition dictation system. (DIANELYS ROBERTSON SUPERVISOR OPENING AND PICKING) Departure Departure Impression: Primary Impression: Elevated blood pressure reading Additional Impressions: Headache Qualified Codes: R51.9 - Headache, unspecified Nausea Disposition: HOME / SELF CARE / HOMELESS Condition: STABLE Referrals: DENI KAHN MD (PCP) Follow-up next week BHASKAR ESCALERA MD Follow-up as soon as possible Patient Instructions: Headache, FAQs Additional Instructions: Your work-up in the emergency room is negative for any acute findings. Please follow-up with Dr. Kahn and Dr. Escalera as soon as you can Attending Signature Attending Signature I have reviewed the PA/APPRENTICE JOCKEY's note and plan of care. I was available for consultation as needed during the patient's visit in the emergency department. I agree with the clinical impression, plan, and disposition. (DARIEN ELLSWORTH DO) DIANELYS ROBERTSON APRN Aug 04, 2021 18:24 DARIEN ELLSWORTH DO Aug 11, 2021 13:21
[2021-08-04] MEDS ORDERED: HYDROmorphone 2 MG/ML VIAL IVP ONE (19:00)
[2021-08-04 19:54] VITALS: BP 124/60
[2021-08-04] MEDS ORDERED: HEPARIN PF 500 UNIT/5 ML DISP.SYRIN. IVP ONE ×2 (20:18→20:30)
== END 2021-08-04 20:28 | disposition home or self-care (01) ==
LOC: ER 14:15
DX: I10 Essential (primary) hypertension (principal); G43.909 Migraine, unspecified, not intractable, without status migrainosus; R11.0 Nausea; K21.9 Gastro-esophageal reflux disease without esophagitis; K50.90 Crohn's disease, unspecified, without complications; E66.01 Morbid (severe) obesity due to excess calories; G40.909 Epilepsy, unspecified, not intractable, without status epilepticus; Z68.43 Body mass index [BMI] 50.0-59.9, adult; Z90.89 Acquired absence of other organs; Z90.49 Acquired absence of other specified parts of digestive tract; Z86.711 Personal history of pulmonary embolism; Z86.718 Personal history of other venous thrombosis and embolism; Z91.041 Radiographic dye allergy status; Z88.0 Allergy status to penicillin; Z88.6 Allergy status to analgesic agent; Z88.1 Allergy status to other antibiotic agents; Z88.8 Allergy status to other drugs, medicaments and biological substances
CPT/HCPCS: 36415; 70450; 80053; 81001; 81025; 85025; 96361; 96374; 96375; 99285; J1170; J1642; J2270; J2405; J7030